=== PATIENT | male | born 1970 | race Caucasian/White ===

== ENCOUNTER 2022-05-31 09:06 | Inpatient (IN) ==
--- NOTE | 2022-05-31 10:01 | Emergency Department Note ---
History of Present Illness General Chief complaint: Back Injury/Pain Stated complaint: BACK PAIN Time Seen by Provider: 05/31/22 09:56 History of Present Illness Maximum Pain Intensity: 9 This is a 52-year-old male that presents to the emergency department via private vehicle with complaints of "back pain". The patient notes that while swimming about 3 weeks ago he injured his low back. He then played golf about a week ago that seem to exacerbate his symptoms. He now notes over the past few days he has had significant trouble walking secondary to pain. He notes he must lay in the prone position for some relief. He has tried muscle relaxers and Percocet with minimal relief. He notes the pain is in the right low back that radiates to the right hip and into the right groin area. He does note some numbness in the right thigh and right groin region. Patient denies any loss of control of his bowel or bladder. He does feel some weakness in the right leg. Current pain 9/10. He denies any history of spinal surgeries. No recent illness. No fevers or chills. No abdominal pain. Patient does note that he was to be on diabetic medication but is no longer taking them. Allergies Allergy/AdvReac Type Severity Reaction Status Date / Time morphine AdvReac Vomiting Verified 05/31/22 13:44 Past Med/Surg History Medical History Diabetes Surgical History No pertinent past surgical history Social History Smoking Status: Never smoker Feels Safe at Home: Yes Review of Systems A total of 10 systems reviewed and were otherwise negative Physical Exam Vital Signs Vital Signs - 24 hr 05/31/22 09:13 05/31/22 10:33 05/31/22 14:56 Temperature 36.5 C Temperature Source Temporal Artery Scan Pulse Rate 68 Pulse Rate [Left] 59 L 66 Pulse Rhythm [Left] Regular Regular Pulse Strength [Left] Normal Normal Respiratory Rate 20 19 18 Respiratory Effort / Characteristics Non-Labored Non-Labored Non-Labored Respiratory Depth Normal Normal Normal Respiratory Pattern Regular Regular Blood Pressure 215/104 H Blood Pressure [Left Arm] 158/85 H Blood Pressure Mean 141 Blood Pressure Mean [Left Arm] 109 Blood Pressure Position [Left Arm] Lying Pulse Oximetry 95 97 92 Oxygen Delivery Method Room Air Room Air Room Air Sepsis Recent Fever Within 48 Hours No Sepsis New/Unexplained Change in Mental Status N/A Sepsis Action Taken by Nursing No Action Required VITAL SIGNS - Vital signs and nursing notes were reviewed. Hypertensive, otherwise stable. GENERAL -52-year-old male appearing his stated age who is in no acute distress but appears to be in pain. Patient is laying prone on examination bed. Communicates well with provider and answers questions appropriately. SKIN - Without rashes. No meningeal or petechial rash. HEAD - NC/AT. EYES - PERRL with EOMI bilaterally. Sclera anicteric. EARS - No deformities of external structures noted on gross examination bilaterally. NOSE - Midline and without cyanosis. MOUTH/OROPHARYNX - Without perioral cyanosis. NECK - Neck with FROM. No nuchal rigidity. LUNGS - Chest wall symmetric without accessory muscle use, intercostals retractions, or central cyanosis. Normal vesicular breath sounds CTA B/L. No wheezes, rales, or rhonchi appreciated. CARDIAC - RRR with S1/S2. No murmur, rubs, or gallops appreciated. ABDOMEN - Abdominal contour normal without pulsations or visible masses. BS nor moactive all four quadrants. No tenderness, palpable masses, hepatosplenomegaly, or ascites noted. EXTREMITIES - No clubbing or peripheral cyanosis. No pretibial edema present. Left lower extremity strength normal. Right lower extremity with slight decreased range compared to the left. NEUROLOGIC - Cranial nerves II through XII grossly intact. Sensory intact to light touch throughout. Patellar reflexes +2/4. PSYCH - A&Ox3 and cooperates fully with examiner. Pt is very pleasant and interacts well with examiner. Course Administered Medications Discontinued Medications Dexamethasone Sodium Phosphate (DexamethasonePf 10 Mg/Ml Vial) 10 mg IV NOW ONE Stop: 05/31/22 13:37 Last Admin: 05/31/22 13:57 Dose: 10 mg Documented By: ALBAN Hydromorphone HCl (Hydromorphone Inj 1 Mg/Ml Syringe) 1 mg IV NOW STA Stop: 05/31/22 10:17 Last Admin: 05/31/22 10:27 Dose: 1 mg Documented By: LIGIA Hydromorphone HCl (Hydromorphone Inj 0.5 Mg/0.5 Ml Syr) 0.5 mg IV NOW STA Stop: 05/31/22 11:19 Last Admin: 05/31/22 11:30 Dose: 0.5 mg Documented By: LISA Lidocaine (Lidocaine 5% 1 Patch) 1 patch TD NOW STA Stop: 05/31/22 13:38 Last Admin: 05/31/22 13:55 Dose: 1 patch Documented By: ALBAN Ondansetron HCl (Ondansetron Inj 2 Mg/Ml 2 Ml Vial) 4 mg IV NOW STA Stop: 05/31/22 10:17 Last Admin: 05/31/22 10:27 Dose: 4 mg Documented By: LIGIA Medical Decision Making Laboratory Data Result diagrams: 05/31/22 10:30 05/31/22 10:30 Lab Results 05/31/22 05/31/22 Range/Units 10:30 10:30 WBC 6.83 (4.8-10.8) K/ul RBC 5.28 (4.63-6.08) M/uL Hgb 16.2 (14.0-18.0) g/dl Hct 45.4 (40.1-51.0) % MCV 86.0 (80.0-100.0) fL MCH 30.7 (25.0-34.0) pg MCHC 35.7 (32.0-36.0) g/dL RDW Std Deviation 38.7 (36.4-46.3) fL RDW Coeff of Malgorzata 12.3 (11.5-14.5) % Plt Count 197 (130-400) K/uL MPV 10.7 (9.4-12.4) fL Immature Gran % (Auto) 0.4 % Neut % (Auto) 68.8 % Lymph % (Auto) 21.8 % Baxter % (Auto) 7.8 % Eos % (Auto) 0.9 % Baso % (Auto) 0.3 % Neut # (Auto) 4.70 (1.4-6.5) K/uL Lymph # (Auto) 1.49 (1.2-3.4) K/uL Baxter # (Auto) 0.53 (0.24-0.82) K/uL Eos # (Auto) 0.06 (0-0.50) K/uL Baso # (Auto) 0.02 (0-0.2) K/uL Immature Gran # (Auto) 0.03 H (0.00-0.02) K/uL Sodium 135 L (136-145) mmol/L Potassium 3.9 (3.5-5.1) mmol/L Chloride 100 (98-107) mmol/L Carbon Dioxide 26 (21-32) mmol/L Anion Gap 9 (3-11) BUN 14 (6-23) mg/dl Creatinine 1.09 (0.6-1.4) mg/dl Est Cr Clr Drug Dosing 105.6 ml/min Est GFR ( Amer) 88.7 ml/min Est GFR (Non-Af Amer) 76.5 ml/min BUN/Creatinine Ratio 12.8 (10-20) Glucose 171 H (70-99(Fasting)) mg/dl Calcium 8.9 (8.5-10.1) mg/dl Total Bilirubin 0.7 (0.2-1.0) mg/dl AST 25 (13-39) U/L ALT 31 (7-52) U/L Alkaline Phosphatase 68 (34-104) U/L Total Protein 7.4 (6.0-8.3) gm/dl Albumin 4.0 (3.4-5.0) gm/dl Globulin 3.4 (2.5-4.0) gm/dl Albumin/Globulin Ratio 1.2 (0.9-2) Imaging Data Radiologist's Impression: Lumbar Spine MRI 05/31/22 10:16 MRI OF THE LUMBAR SPINE WITHOUT IV CONTRAST CLINICAL HISTORY: Low back pain radiating to the right groin. COMPARISON STUDY: No priors. TECHNIQUE: MRI of the lumbar spine is performed utilizing various T1 and T2 weighted sequences in the axial and sagittal planes. IV contrast was not administered for this examination. The examination is modestly degraded by motion artifact. FINDINGS: Lumbar spine: Vertebral body height and alignment are maintained throughout the lumbar spine. Tiny anterior and lateral marginal osteophytes are seen throughout. The transverse and spinous processes appear intact. There is no evidence of spondylolysis. Mild chronic degenerative endplate changes seen at L4-L5 and L5-S1. There is no significant endplate edema. No destructive bony lesion is seen. Intervertebral discs: There is mild degenerative disc desiccation throughout the lumbar spine. The disc spaces are maintained. Spinal cord: The visualized spinal cord is normal in morphology and signal intensity. The conus medullaris terminates at the L1-L2 interspace. The nerve roots of the cauda equina are normal in morphology. L1-L2: Unremarkable. L2-L3: There is a far right lateral disc extrusion, best seen on axial T1 weighted image #8. This may impinge on the exiting right L2 nerve root. The extruded fragment measures up to 1.0 cm. The central canal and neural foramina are clear. L3-L4: There is minimal posterior disc bulge. The central canal and neural foramina are patent. L4-L5: There is broad-based posterior disc bulge. There is mild acquired compromise of the central canal at this level with a minimum AP diameter of 6.5. Lateral disc bulge contributes to bilateral subarticular stenosis. This may abut the exiting right L4 nerve root. In conjunction with facet arthropathy there is mild bilateral neural foraminal stenosis. L5-S1: There is minimal posterior disc bulge with annular fissure. No significant acquired compromise of the central canal is identified. There is mild bilateral subarticular stenosis. In conjunction with facet arthropathy there is moderate left and mild right neural foraminal narrowing. Sacrum: The visualized sacrum is normal in morphology and signal intensity. Soft tissues: The paraspinous soft tissues are within normal limits. The retroperitoneal structures are grossly unremarkable but incompletely evaluated. IMPRESSION: 1. There is a right lateral disc extrusion at L2-L3 which likely impinges on the exiting right L2 nerve root. 2. Spondylotic change at additional levels as above. See discussion for detailed level by level analysis. 3. No destructive bony process is seen. Dictated: 05/31/2022 12:20 PM Transcribed: 05/31/2022 12:51 PM Patricia [id number] VANGIE_Terry Electronically signed by: Marco Antonio Burns M.D. 05/31/2022 1:23 PM [facility] Narrative Patient was seen and evaluated as above in room B10. Review was performed of nursing notes and vital signs. After obtaining a thorough history and physical examination the above work up was performed. Patient presents to us today for evaluation of low back pain. This radiates to the right groin region. Patient clinically appears well and nontoxic but appears to be in pain. He is in the prone position on the examination bed at time of exam. He is hypertensive. No abdominal pain. Options of care were discussed with the patient. IV access was established. Labs were drawn. Patient has an allergy to morphine but notes he has tolerated Dilaudid well without issues in the past. This was ordered as well as IV Zofran. I do believe that an MRI of the L-spine is warranted. He notes allergy to morphine but has tolerated Dilaudid previously. There is no leukocytosis or concerning anemia. Mild hyponatremia 135. Hyperglycemia 171. MRI was felt reasonable at this point to further assess the spine. There is a right lateral disc extrusion at L2-L3 which likely impinges on the exiting L2 nerve root. This does clinically correlate with his presentation. Patient was medicated with IV analgesics. Even with this the patient still had discomfort and pain with standing/movements. At this time given the patient's steady decline in the outpatient setting in regard to his back pain I do believe that further evaluation and management in the inpatient setting is warranted. I did discuss this finding with the recycling specialist team. Please refer to their documentation regarding assessment. Case also discussed with the hospitalist service for medical admission. Please refer to further documentation regarding his stay. Patient amenable to plan of care. In the evaluation and treatment of this patient the following differential diagnosis entertained: Fracture, dislocation, subluxation, cauda equina syndrome, AAA, diverticulitis, appendicitis, torsion, osteomyelitis, piriformis syndrome, strain, sprain, among others. GCS: 15 Impression & Plan Lumbar radiculopathy, Abnormal MRI, lumbar spine, Intractable low back pain Discharge Plan Visit Data Chief Complaint: Back Injury/Pain Stated Complaint: BACK PAIN ED Provider: Saeed Gilbert ED Midlevel Provider: Manohar Robbins Discharge Problem: Lumbar radiculopathy, Abnormal MRI, lumbar spine, Intractable low back pain Patient Disposition: Admitted As Inpatient Condition: Good Forms Stand Alone Forms: My [facility] Referrals Referrals: PCP,NO [Physician] -
[2022-05-31] MEDS ORDERED: ONDANSETRON INJ 2 MG/ML 2 ML VIAL IV STA (10:16)
[2022-05-31] MEDS ORDERED: HYDROmorphone INJ 1 MG/ML SYRINGE IV STA (10:16)
[2022-05-31 10:45] LABS: Basophils # (auto) 0.02 K/uL (0-0.2); Basophils % (auto) 0.3 %; Eosinophils # (auto) 0.06 K/uL (0-0.50); Eosinophils % (auto) 0.9 %; Hematocrit (blood only) 45.4 % (40.1-51.0); Hemoglobin 16.2 g/dl (14.0-18.0); Immature Granulocytes # (auto) 0.03 K/uL (0.00-0.02); Immature Granulocytes % (auto) 0.4 %; Lymphocytes # (auto) 1.49 K/uL (1.2-3.4); Lymphocytes % (auto) 21.8 %; Mean Corpuscular Hemoglobin 30.7 pg (25.0-34.0); Mean Corpuscular Hgb Conc 35.7 g/dL (32.0-36.0); Mean Platelet Volume 10.7 fL (9.4-12.4); Monocytes # (auto) 0.53 K/uL (0.24-0.82); Monocytes % (auto) 7.8 %; Neutrophils % (auto) 68.8 %; Platelet Count 197 K/uL (130-400); RDW Coefficient of Variation 12.3 % (11.5-14.5); RDW Standard Deviation 38.7 fL (36.4-46.3); Red Blood Count 5.28 M/uL (4.63-6.08); White Blood Count 6.83 K/ul (4.8-10.8)
[2022-05-31 11:05] LABS: Albumin Globulin Ratio 1.2 (0.9-2); BUN Creatinine Ratio 12.8 (10-20); Bilirubin,Total 0.7 mg/dl (0.2-1.0); Calcium 8.9 mg/dl (8.5-10.1); Creatinine Clr Calc Pharmacy 105.6 ml/min; Est GFR (African American) 88.7 ml/min; Est GFR (Non-African American) 76.5 ml/min; Globulin 3.4 gm/dl (2.5-4.0); Potassium 3.9 mmol/L (3.5-5.1); Total Protein 7.4 gm/dl (6.0-8.3)
[2022-05-31] MEDS ORDERED: HYDROmorphone INJ 0.5 MG/0.5 ML SYR IV STA (11:18)
--- NOTE | 2022-05-31 13:24 | Magnetic Resonance Report ---
MRI OF THE LUMBAR SPINE WITHOUT IV CONTRAST CLINICAL HISTORY: Low back pain radiating to the right groin. COMPARISON STUDY: No priors. TECHNIQUE: MRI of the lumbar spine is performed utilizing various T1 and T2 weighted sequences in the axial and sagittal planes. IV contrast was not administered for this examination. The examination is modestly degraded by motion artifact. FINDINGS: Lumbar spine: Vertebral body height and alignment are maintained throughout the lumbar spine. Tiny an terior and lateral marginal osteophytes are seen throughout. The transverse and spinous processes darwin ear intact. There is no evidence of spondylolysis. Mild chronic degenerative endplate changes seen at L4-L5 and L5-S1. There is no significant endplate edema. No destructive bony lesion is seen. Intervertebral discs: There is mild degenerative disc desiccation throughout the lumbar spine. The di sc spaces are maintained. Spinal cord: The visualized spinal cord is normal in morphology and signal intensity. The conus medul lesa terminates at the L1-L2 interspace. The nerve roots of the cauda equina are normal in morpholog y. L1-L2: Unremarkable. L2-L3: There is a far right lateral disc extrusion, best seen on axial T1 weighted image #8. This may impinge on the exiting right L2 nerve root. The extruded fragment measures up to 1.0 cm. The central canal and neural foramina are clear. L3-L4: There is minimal posterior disc bulge. The central canal and neural foramina are patent. L4-L5: There is broad-based posterior disc bulge. There is mild acquired compromise of the central ca nal at this level with a minimum AP diameter of 6.5. Lateral disc bulge contributes to bilateral suba rticular stenosis. This may abut the exiting right L4 nerve root. In conjunction with facet arthropat hy there is mild bilateral neural foraminal stenosis. L5-S1: There is minimal posterior disc bulge with annular fissure. No significant acquired compromise of the central canal is identified. There is mild bilateral subarticular stenosis. In conjunction wi th facet arthropathy there is moderate left and mild right neural foraminal narrowing. Sacrum: The visualized sacrum is normal in morphology and signal intensity. Soft tissues: The paraspinous soft tissues are within normal limits. The retroperitoneal structures a re grossly unremarkable but incompletely evaluated. IMPRESSION: 1. There is a right lateral disc extrusion at L2-L3 which likely impinges on the exiting right L2 ner ve root. 2. Spondylotic change at additional levels as above. See discussion for detailed level by level mary sis. 3. No destructive bony process is seen. Dictated: 05/31/2022 12:20 PM Transcribed: 05/31/2022 12:51 PM Patricia [id number] VANGIE_Terry Electronically signed by: Marco Antonio Burns M.D. 05/31/2022 1:23 PM
[2022-05-31] MEDS ORDERED: dexAMETHasone**PF** 10 MG/ML VIAL IV ONE (13:36)
[2022-05-31] MEDS ORDERED: LIDOCAINE 5% 1 PATCH TD STA (13:37)
--- NOTE | 2022-05-31 14:44 | Consultation ---
Date of Consultation May 31, 2022 Assessment & Plan (1) HNP (herniated nucleus pulposus), lumbar: Dr. Goodwin has reviewed his MRI. Currently patient is being admitted to the medical service. Options have been reviewed with patient including pain management injections versus ultimate surgical fixation. At this point in time patient would like to discuss his options with his . I will make him n.p.o. after midnight just in case surgery is decided upon. I will also consult pain management team to review their options with him. MRI and clinical findings have been reviewed with the patient and his . All questions have been answered in detail. History of Present Illness Reason for Consultation: HNP L2-3 right History of Present Illness Is a 52-year-old gentleman who 4 weeks ago was going down an inflatable water slide into a pool. At the bottom of the pool he jammed his right leg into the concrete wall. He had some back pain at that point in time. It progressed to pain radiating around his hip and right groin. Since then he has been quite uncomfortable with pain that is in the lower back rating along the right groin, right anterior thigh and right medial thigh. Left leg is asymptomatic. There is new numbness over the past weekend now along this pain pattern as well. He ambulates independently. Denies bowel bladder changes. He has had no treatment or work-up over the past 4 weeks. He presented to the emergency room today because the pain is so severe. Seated position is his most uncomfortable position. Lying prone is most palliative. A t home he has been taking some of his 's Flexeril and Percocet for pain control. Allergies Allergy/AdvReac Type Severity Reaction Status Date / Time morphine AdvReac Vomiting Verified 05/31/22 13:44 Patient History Medical History Diabetes Surgical History No pertinent past surgical history Social History Smoking Status: Never smoker Feels Safe at Home: Yes Review of Systems Review of Systems: All systems reviewed & are unremarkable except as noted in HPI & below Physical Exam Physical Exam: He is seen in the emergency room b10 He is prone during most of our exam. Alert and oriented x3 Obviously uncomfortable He is able to change positions on his own so I may examine him more thoroughly. Nontender to position of the midline lumbar spine Negative tension signs bilaterally Negative straight leg raising bilaterally Motor testing is 5 5 bilateral EHL, dorsiflexion, plantarflexion, quadriceps, hamstrings, hip flexors, hip abductor's and hip adductor's Constitutional: well nourished Eyes: normal visual mathis by confrontation ENMT: external ear and nose normal, oropharynx normal Neck: normal visual inspection Respiratory: normal respiratory effort Cardiovascular: Extremities: normal capillary refill Gastrointestinal (Abdomen): Inspection/Auscultation: abdomen normal to inspection Musculoskeletal: Extremities: extremities normal to inspection and strength 5/5 throughout Skin: no rashes, warm and dry Neurologic: normal touch/pain/proprioception and moves all extremities Psychiatric: A+Ox3, euthymic affect Eye Contact: good eye contact Speech: normal rate/rhythm/volume of speech Results & Data ([facility]) Vital Signs (Past 12 Hours) Vital Signs Temp Pulse Pulse Resp BP BP Pulse Ox 05/31/22 10:33 59 L 19 158/85 H 97 05/31/22 09:13 36.5 C 68 20 215/104 H 95 O2 Del Method 05/31/22 10:33 Room Air 05/31/22 09:13 Room Air Diagnostic Findings [place], [place] [phone] Magnetic Resonance Report Patient:ANNETTA SUMMERS Admit Date:05/31/22 MR#:[id number] Address1:[address] [place] [address] Acct ID:[id number] Address2: Date:1970 [facility] Zip:[place] [address] Age:52 Location:ED Sex:M Room/Bed: Att Phy: Diagnosis:BACK PAIN Genie Phy:Jerry Art DO Service Date:05/31/22 Fam Phy: Interpreting Phy:Marco Antonio Burns MDAdmit Phy: Ordering Phy:Manohar Robbins PA-C cc: ~ MRI OF THE LUMBAR SPINE WITHOUT IV CONTRAST CLINICAL HISTORY: Low back pain radiating to the right groin. COMPARISON STUDY: No priors. TECHNIQUE: MRI of the lumbar spine is performed utilizing various T1 and T2 weighted sequences in the axial and sagittal planes. IV contrast was not administered for this examination. The examination is modestly degraded by motion artifact. FINDINGS: Lumbar spine: Vertebral body height and alignment are maintained throughout the lumbar spine. Tiny anterior and lateral marginal osteophytes are seen throughout. The transverse and spinous processes appear intact. There is no evidence of spondylolysis. Mild chronic degenerative endplate changes seen at L4-L5 and L5-S1. There is no significant endplate edema. No destructive bony lesion is seen. Intervertebral discs: There is mild degenerative disc desiccation throughout the lumbar spine. The disc spaces are maintained. Spinal cord: The visualized spinal cord is normal in morphology and signal intensity. The conus medullaris terminates at the L1-L2 interspace. The nerve roots of the cauda equina are normal in morphology. L1-L2: Unremarkable. L2-L3: There is a far right lateral disc extrusion, best seen on axial T1 weighted image #8. This may impinge on the exiting right L2 nerve root. The extruded fragment measures up to 1.0 cm. The central canal and neural foramina are clear. L3-L4: There is minimal posterior disc bulge. The central canal and neural foramina are patent. L4-L5: There is broad-based posterior disc bulge. There is mild acquired compromise of the central canal at this level with a minimum AP diameter of 6.5. Lateral disc bulge contributes to bilateral subarticular stenosis. This may abut the exiting right L4 nerve root. In conjunction with facet arthropathy there is mild bilateral neural foraminal stenosis. L5-S1: There is minimal posterior disc bulge with annular fissure. No significant acquired compromise of the central canal is identified. There is mild bilateral subarticular stenosis. In conjunction with facet arthropathy there is moderate left and mild right neural foraminal narrowing. Sacrum: The visualized sacrum is normal in morphology and signal intensity. Soft tissues: The paraspinous soft tissues are within normal limits. The retroperitoneal structures are grossly unremarkable but incompletely evaluated. IMPRESSION: 1. There is a right lateral disc extrusion at L2-L3 which likely impinges on the exiting right L2 nerve root. 2. Spondylotic change at additional levels as above. See discussion for detailed level by level analysis. 3. No destructive bony process is seen. Dictated: 05/31/2022 12:20 PM Transcribed: 05/31/2022 12:51 PM Patricia [id number] VANGIE_Terry Electronically signed by: Marco Antonio Burns M.D. 05/31/2022 1:23 PM Dictated:05/31/22 1220 Transcribed: 05/31/22 1251
--- NOTE | 2022-05-31 15:33 | History & Physical Report ---
Date of Service May 31, 2022 Assessment & Plan (1) Lumbar radiculopathy: Plan: -Admit to med/surge -No red flag symptoms at the current time -Ortho on board and will re-evaluate tomorrow to determine best treatment options -Will try a dose of toradol now to see if this improves his pain as his kidney function is good -Continue with lidocaine patch, will start baclofen at 5 mg PO TID, will also try gabapentin 100 mg PO BID for radicular pain, scheduled q6h Tylenol and K- patch as well -Oxy 5mg q4h prn for severe pain -OOB to chair with assist -PT/OT consults ordered -Q6 neuro checks -NPO except meds at midnight in case of procedure tomorrow (2) HNP (herniated nucleus pulposus), lumbar: Plan: -See lumbar radiculopathy (3) DM II (diabetes mellitus, type II), controlled: Plan: -No currently on medication -Will start with accu checks ACHS -Correction factor of 20 and carb ration of 6 (4) HTN (hypertension): Plan: -Not on any DENTAL TECHNOLOGY ADVISOR antihypertensives -Hemodynamically stable at the time of admission -Monitor for now (5) Hypercholesteremia: Plan: -DENTAL TECHNOLOGY ADVISOR atorvastatin (6) Anxiety: Plan: -DENTAL TECHNOLOGY ADVISOR citalopram Plan The patient was discussed with Dr. Gan at the time of admission History of Present Illness Chief Complaint: Low back pain Primary Care Provider: Jerry Art DO Angel Luis is a 52 year old male with a PMH significant for HTN, DM II, anxiety, and Dyslipidemia who presented to the [facility] ED on 05/31/22 with a chief complaint of low back pain and ambulatory dysfunction. At the time of the exam the patient was lying prone in his bed in no acute distress with his sitting bedside. They state that his back pain started approximately 1 month ago. He went head first down their pool slide when his right leg hit the side of their pool, he states that this cause him to "tweak" his back and have significant lower back pain. He rested for a few days and the pain began to improve. Last week he was attending a golf outing for his work when he felt a "pop" while swinging and then experiencing significant low back pain which radiated around his right hip, and to the front of his upper right thigh and groin. He experienced significant weakness in his right leg after this occurred and he again rested for multiple days in bed. Yesterday, he was feeling improved and went in the pool with his granddaughter, he did not do any significant strenuous activity. He felt well after but then woke up this morning with significant back pain. He tried to go to work but was unable to tolerate the pain. He tried Tylenol and baclofen but they only took the edge off a little. He is experiencing numbness and tingling in the same distribution as his lower back and right leg but denies saddle an esthesia and loss of bowel/bladder function. He currently takes atorvastatin for high cholesterol and citalopram for anxiety. In the ED the patient underwent MRI of the lumbar spine which revealed right lateral disc extrusion at L2-L3 which likely impinges on the exiting right L2 nerve root. The patient was given a lidocaine patch, 10 mg IV dexamethasone, and 1.5 mg of IV dilaudid. He states that his pain is currently a 2-3/10 after receiving the Dilaudid. He was evaluated by orthpedic surgery who recommended medicine admission, they will re-evaluate tomorrow and discuss possible t reatment options with the patient and his ; they also consulted pain management. Allergies Allergy/AdvReac Type Severity Reaction Status Date / Time morphine AdvReac Vomiting Verified 05/31/22 15:34 Home Medications Medication Instructions Recorded Confirmed Type atorvastatin 10 mg tablet 10 mg PO DAILY 05/31/22 05/31/22 History citalopram 20 mg tablet 20 mg PO DAILY 05/31/22 05/31/22 History ibuprofen 200 mg tablet 800 mg PO Q8 PRN Pain 05/31/22 05/31/22 History Past Med/Surg History Medical History Diabetes Surgical History No pertinent past surgical history Social History Smoking Status: Never smoker Feels Safe at Home: Yes Review of Systems Review of Systems: Denies current fever, chills, headache, changes in vision, hearing, taste, and smell, chest pain, SOB, cough, abdominal pain, nausea, vomiting, diarrhea, hematemesis, melena, dysuria, hematuria, and recent falls. All systems have been reviewed and are otherwise negative. Physical Exam Physical Exam: Physical Exam: General: In no acute distress, stated age, obese, HEENT: Normocephalic, atraumatic, no scleral icterus, pupils around round, symmetrical, and reactive to light, moist mucus membranes, trachea midline, no thyromegaly Chest/Pulm: No respiratory distress, symmetrical chest expansion, clear breath sounds throughout Cardiac: RRR, no murmurs noted Abdomen: Negative for ascites and bruising, normoactive bowel sounds, soft, non-tender to palpation throughout Musculoskeletal: Patient is non-tender to palpation over the cervical and thoracic spine, significant tenderness to palpation over the lumbar spine, no step-off or crepitus noted on palpation of the lumbar spine, patient able to get out of bed himself and ambulate to the restroom without assistance, slightly red uced strength in the right leg compared to left due to pain Extremities: Radial, dorsalis pedis, and posterior tibial pulses are intact and symmetrical, no edema noted in the BL LE's Skin: Warm, dry, no rashes , lesions, or scars noted Neuro: Alert and oriented to person, place, month, year, and president, no focal defects, CN II-XII tested and intact, finger to nose test negative, no tremors noted Psych: No acute distress, calm and cooperative during the exam Results & Data Results & Data ([facility]) Vital Signs (Past 12 Hours) Vital Signs Temp Pulse Pulse Resp BP BP Pulse Ox 05/31/22 14:56 66 18 92 05/31/22 10:33 59 L 19 158/85 H 97 05/31/22 09:13 36.5 C 68 20 215/104 H 95 O2 Del Method 05/31/22 14:56 Room Air 05/31/22 10:33 Room Air 05/31/22 09:13 Room Air Laboratory Results Abnormal lab results 05/31/22 05/31/22 Range/Units 10:30 10:30 Immature Gran # (Auto) 0.03 H (0.00-0.02) K/uL Sodium 135 L (136-145) mmol/L Glucose 171 H (70-99(Fasting)) mg/dl Diagnostic Findings Lumbar Spine MRI 05/31/22 10:16 MRI OF THE LUMBAR SPINE WITHOUT IV CONTRAST CLINICAL HISTORY: Low back pain radiating to the right groin. COMPARISON STUDY: No priors. TECHNIQUE: MRI of the lumbar spine is performed utilizing various T1 and T2 weighted sequences in the axial and sagittal planes. IV contrast was not administered for this examination. The examination is modestly degraded by motion artifact. FINDINGS: Lumbar spine: Vertebral body height and alignment are maintained throughout the lumbar spine. Tiny anterior and lateral marginal osteophytes are seen throughout. The transverse and spinous processes appear intact. There is no evidence of spondylolysis. Mild chronic degenerative endplate changes seen at L4-L5 and L5-S1. There is no significant endplate edema. No destructive bony lesion is seen. Intervertebral discs: There is mild degenerative disc desiccation throughout the lumbar spine. The disc spaces are maintained. Spinal cord: The visualized spinal cord is normal in morphology and signal intensity. The conus medullaris terminates at the L1-L2 interspace. The nerve roots of the cauda equina are normal in morphology. L1-L2: Unremarkable. L2-L3: There is a far right lateral disc extrusion, best seen on axial T1 weighted image #8. This may impinge on the exiting right L2 nerve root. The extruded fragment measures up to 1.0 cm. The central canal and neural foramina are clear. L3-L4: There is minimal posterior disc bulge. The central canal and neural foramina are patent. L4-L5: There is broad-based posterior disc bulge. There is mild acquired compromise of the central canal at this level with a minimum AP diameter of 6.5. Lateral disc bulge contributes to bilateral subarticular stenosis. This may abut the exiting right L4 nerve root. In conjunction with facet arthropathy there is mild bilateral neural foraminal stenosis. L5-S1: There is minimal posterior disc bulge with annular fissure. No significant acquired compromise of the central canal is identified. There is mild bilateral subarticular stenosis. In conjunction with facet arthropathy there is moderate left and mild right neural foraminal narrowing. Sacrum: The visualized sacrum is normal in morphology and signal intensity. Soft tissues: The paraspinous soft tissues are within normal limits. The retroperitoneal structures are grossly unremarkable but incompletely evaluated. IMPRESSION: 1. There is a right lateral disc extrusion at L2-L3 which likely impinges on the exiting right L2 nerve root. 2. Spondylotic change at additional levels as above. See discussion for detailed level by level analysis. 3. No destructive bony process is seen. Dictated: 05/31/2022 12:20 PM Transcribed: 05/31/2022 12:51 PM Patricia [id number] VANGIE_Terry Electronically signed by: Marco Antonio Burns M.D. 05/31/2022 1:23 PM ECG Additional Comments: No EKG available at the time of admission, will order one now Code Status & VTE Plan Code Status Full code VTE Prophylaxis Plan VTE Prophylaxis will be ordered: Yes Supervising Physician Co-Signing Physician Notes I supervised Armando Pérez PA-C on this admission. I interviewed and examined the patient independently of him. The plan is as written in his note except for any following changes/exceptions: None 52yo M w/ hx of DM who presents with back pain. Initially started about 1 month ago, but has exacerbated it several times over the last week. Now with some mild subjective weakness. MRI shows ruptured disc. Seen by ortho-spine PA in the ER with hope for conservative management. PG Care Time/CCT Total # of Minutes Spent Total Time Spent with Patient: Total time spent is greater than 50% in coordination of care (as documented) at patient's floor/unit and/or counseling patient: [place] [address] Initial Inpt Care Lvl 3 Patient Type New Medical Decision Making Low Complexity Diagnoses Lumbar radiculopathy M54.16 HNP (herniated nucleus pulposus), lumbar M51.26 DM II (diabetes mellitus, type II), controlled E11.9 HTN (hypertension) I10 Hypercholesteremia E78.00 Anxiety F41.9
[2022-05-31] MEDS ORDERED: CARBOHYDRATES FOR HYPOGLYCEMIA PO PRN (17:49)
[2022-05-31] MEDS ORDERED: DEXTROSE 50% 50 ML SYRINGE IV PRN (17:49)
[2022-05-31] MEDS ORDERED: GLUCOSE 10 TAB/TUBE PO PRN (17:49)
[2022-05-31] MEDS ORDERED: KETOROLAC TROMETHAMINE 15 MG/ML VIAL IV ONE (17:49)
[2022-05-31] MEDS ORDERED: GLUCOSE 40% GEL 15 GM TUBE PO PRN (17:49)
[2022-05-31] MEDS ORDERED: BACLOFEN 10 MG TAB PO PRN (17:49)
[2022-05-31] MEDS ORDERED: GLUCAGON FOR INJ 1 MG VIAL SQ PRN (17:49)
[2022-05-31] MEDS: oxyCODONE HCL IR 5 MG TAB (IMMEDIATE RELEASE) PO PRN ×2 (18:22→22:34)
[2022-05-31] MEDS: GABAPENTIN 100 MG CAP PO SCH ×2 (19:08→21:28)
[2022-05-31] MEDS: ENOXAPARIN INJ 40 MG/0.4 ML SYR SQ SCH (19:08)
[2022-05-31] MEDS: INSULIN ASPART PER UNIT SC SCH ×2 (19:12→21:29)
[2022-05-31] MEDS: ACETAMINOPHEN 325 MG TAB PO PRN (21:27)
[2022-06-01] MEDS: ACETAMINOPHEN 325 MG TAB PO PRN (06:17)
[2022-06-01] MEDS: oxyCODONE HCL IR 5 MG TAB (IMMEDIATE RELEASE) PO PRN ×3 (06:18→17:14)
[2022-06-01] MEDS: INSULIN ASPART PER UNIT SC SCH ×4 (06:22→21:22)
[2022-06-01 08:02] LABS: Hematocrit (blood only) 45.7 % (40.1-51.0); Hemoglobin 16.2 g/dl (14.0-18.0); Mean Corpuscular Hemoglobin 30.5 pg (25.0-34.0); Mean Corpuscular Hgb Conc 35.4 g/dL (32.0-36.0); Mean Corpuscular Volume 86.1 fL (80.0-100.0); Mean Platelet Volume 10.5 fL (9.4-12.4); Platelet Count 244 K/uL (130-400); RDW Coefficient of Variation 12.7 % (11.5-14.5); RDW Standard Deviation 39.8 fL (36.4-46.3); Red Blood Count 5.31 M/uL (4.63-6.08); White Blood Count 12.66 K/ul (4.8-10.8)
--- NOTE | 2022-06-01 08:25 | Pain Management Consultation ---
Date of Consultation June 01, 2022 Assessment & Plan (1) HNP (herniated nucleus pulposus), lumbar: Plan I have discussed the possible option of lumbar epidural steroid injection. Procedure was explained in details were discussed. Ultimately the patient would like to proceed with lumbar spine surgery. We will continue his current medication regimen of oxycodone, baclofen, gabapentin, lidocaine patch. History of Present Illness Reason for Consultation: Intractable back pain Attending Physician: Marleny Ballard MD History of Present Illness This is a 52-year-old male that has been admitted to the [facility] for lumbar radiculopathy. Patient states that he went down a pool slide and felt numbness and tingling into the right groin. He then went golfing last week and felt a sudden pop in his low back. The pain is located in the lumbar region and radiates into the right groin. At home he was taking Tylenol and baclofen without relief. He did meet with spine surgery yesterday and to consider either conservative epidural steroid injections with pain management or proceed with surgical repair. Patient denies any bowel/bladder incontinence, saddle anesthesia, foot drop, falls. Case discussed with Dr. Radha Mccann Allergies Allergy/AdvReac Type Severity Reaction Status Date / Time morphine AdvReac Vomiting Verified 05/31/22 15:34 Home Medications Medication Instructions Recorded Confirmed Type atorvastatin 10 mg tablet 10 mg PO DAILY 05/31/22 05/31/22 History citalopram 20 mg tablet 20 mg PO DAILY 05/31/22 05/31/22 History ibuprofen 200 mg tablet 800 mg PO Q8 PRN Pain 05/31/22 05/31/22 History Patient History Medical History Diabetes Surgical History No pertinent past surgical history Social History Smoking Status: Never smoker Second Hand Exposure: No; Hx Alcohol Use: Yes Alcohol type: beer and hard liquor Hx Substance Use: No Preferred Language: [place] Communication Ability: Effective Geochemist Required: No Beliefs That Will Affect Care: None Current Living Situation: Spouse Feels Safe at Home: Yes Assistive Devices: None Physical Exam Physical Exam: GENERAL: This is an obese 52 year old male that does not appear in any acute distress. HEAD/FACE: Normocephalic and atraumatic. EYES: No drainage or conjunctival injection. ENT: Nose without bleeding or discharge. Oral mucosa moist. RESPIRATORY: Patient with unlabored breathing. No signs of respiratory distress. CHEST/AXILLA: Chest movement symmetrical. No deformities noted. BACK: Mild tenderness at L2. No SI joint tenderness. No myofascial spasm or trigger points noted. SKIN: [place], warm and dry. No rash noted. MS/EXTREMITY: No swelling, no deformities. Moving extremities appropriately. NEURO: Alert and appears oriented. Speech is fluent. Cranial Nerves are grossly intact. PSYCH: Alert, pleasant, affect is calm Results ([facility]) Diagnostic Review MRI Findings: MRI OF THE LUMBAR SPINE WITHOUT IV CONTRAST CLINICAL HISTORY: Low back pain radiating to the right groin. COMPARISON STUDY: No priors. TECHNIQUE: MRI of the lumbar spine is performed utilizing various T1 and T2 weighted sequences in the axial and sagittal planes. IV contrast was not administered for this examination. The examination is modestly degraded by motion artifact. FINDINGS: Lumbar spine: Vertebral body height and alignment are maintained throughout the lumbar spine. Tiny anterior and lateral marginal osteophytes are seen throughout. The transverse and spinous processes appear intact. There is no evidence of spondylolysis. Mild chronic degenerative endplate changes seen at L4-L5 and L5-S1. There is no significant endplate edema. No destructive bony lesion is seen. Intervertebral discs: There is mild degenerative disc desiccation throughout the lumbar spine. The disc spaces are maintained. Spinal cord: The visualized spinal cord is normal in morphology and signal intensity. The conus medullaris terminates at the L1-L2 interspace. The nerve roots of the cauda equina are normal in morphology. L1-L2: Unremarkable. L2-L3: There is a far right lateral disc extrusion, best seen on axial T1 weighted image #8. This may impinge on the exiting right L2 nerve root. The extruded fragment measures up to 1.0 cm. The central canal and neural foramina are clear. L3-L4: There is minimal posterior disc bulge. The central canal and neural foramina are patent. L4-L5: There is broad-based posterior disc bulge. There is mild acquired compromise of the central canal at this level with a minimum AP diameter of 6.5. Lateral disc bulge contributes to bilateral subarticular stenosis. This may abut the exiting right L4 nerve root. In conjunction with facet arthropathy there is mild bilateral neural foraminal stenosis. L5-S1: There is minimal posterior disc bulge with annular fissure. No significant acquired compromise of the central canal is identified. There is mil d bilateral subarticular stenosis. In conjunction with facet arthropathy there is moderate left and mild right neural foraminal narrowing. Sacrum: The visualized sacrum is normal in morphology and signal intensity. Soft tissues: The paraspinous soft tissues are within normal limits. The retroperitoneal structures are grossly unremarkable but incompletely evaluated. IMPRESSION: 1. There is a right lateral disc extrusion at L2-L3 which likely impinges on the exiting right L2 nerve root. 2. Spondylotic change at additional levels as above. See discussion for detailed level by level analysis. 3. No destructive bony process is seen. Dictated: 05/31/2022 12:20 PM Transcribed: 05/31/2022 12:51 PM Patricia [id number] VANGIE_Terry Electronically signed by: Marco Antonio Burns M.D. 05/31/2022 1:23 PM
[2022-06-01 08:26] LABS: Albumin Globulin Ratio 1.2 (0.9-2); Albumin Level 4.2 gm/dl (3.4-5.0); BUN Creatinine Ratio 16.4 (10-20); Bilirubin,Total 0.8 mg/dl (0.2-1.0); Calcium 9.2 mg/dl (8.5-10.1); Creatinine Clr Calc Pharmacy 103.6 ml/min; Est GFR (African American) 87.7 ml/min; Est GFR (Non-African American) 75.7 ml/min; Globulin 3.4 gm/dl (2.5-4.0); Total Protein 7.6 gm/dl (6.0-8.3)
[2022-06-01] MEDS: GABAPENTIN 100 MG CAP PO SCH ×2 (08:41→20:32)
[2022-06-01] MEDS: ATORVASTATIN 10 MG TAB PO SCH (08:41)
[2022-06-01] MEDS: CITALOPRAM 20 MG TAB PO SCH (08:41)
[2022-06-01] MEDS: ENOXAPARIN INJ 40 MG/0.4 ML SYR SQ SCH ×2 (08:42→20:32)
--- NOTE | 2022-06-01 12:43 | Orthopedic Progress Note ---
Date of Service June 01, 2022 Assessment & Plan (1) Lumbar radiculopathy: Plan: Assessment foraminal disc herniation with severe radiculopathy. Plan at this time patient is markedly uncomfortable unable to ambulate any distance or sit up without severe pain. The IV medications providing some relief. He is only comfortable lying supine. He would like to pursue surgical invention. In light of the position of the disc herniation it would require facetectomy of L2-L3 on the right to safely and adequately address the nerve compression and disc herniation. This would create iatrogenic instability and subsequently will require fusion. Subsequently would require a lumbar decompression fusion L2-L3. Risk benefits pros cons returns well in detail. It may come p.o. after midnight and plan for surgery tomorrow. Admission and Anticipated Discharge Date Admission Date: May 31, 2022 Subjective Patient continues to have severe right buttock and groin pain. He is unable to sit up for any length of time without severe pain. He can only find position when lying supine and with his he has pain medication. Physical Exam Physical Exam: Patient does exhibit deficits with hip flexion on the right. Plantar flexion dorsiflexion intact. Sensory markedly diminished the right anterior thigh compared to the left. Results & Data ([facility]) Vital Signs (Past 12 Hours) Vital Signs Temp Pulse Resp BP Pulse Ox O2 Del Method 06/01/22 07:00 36.5 C 85 16 145/84 H 98 Room Air
[2022-06-01] MEDS: POLYETHYLENE (MIRALAX) 17 GM PACK PO SCH (14:52)
[2022-06-01] MEDS: DOCUSATE SODIUM/SENNA 50/8.6MG TAB PO SCH (14:52)
[2022-06-01] MEDS ORDERED: Nursing to Pharmacy Communication SCH (16:15)
--- NOTE | 2022-06-01 21:02 | Hospitalist Progress Note ---
Date of Service June 01, 2022 Assessment & Plan (1) Lumbar radiculopathy: Plan: Presents with acutely worsening right L2 lumbar radiculopathy after an injury initially sustained a few weeks ago With intractable pain as well as sensory deficit and some weakness in the right proximal lower extremity Is only slightly improved after receiving IV Decadron in the ER, p.o. oxycodone, starting gabapentin and baclofen as well as lidocaine patch And now for lumbar discectomy and fusion on 06/02-n.p.o. after midnight Continue pain medications as above (2) DM II (diabetes mellitus, type II), controlled: Plan: Not on medication at home Did receive Decadron in the ER making some of his blood sugars slightly elevated -Continue with accu checks ACHS -NovoLog with Correction factor of 20 and carb ration of 6 -Check hemoglobin A1c in the morning (3) Hypercholesteremia: Plan: -Continue atorvastatin (4) Anxiety: Plan: No acute issues -Continue citalopram Plan DVT prophylaxis-Lovenox will be held for surgery, continue SCDs Disposition-continued stay on medical/surgical unit Admission and Anticipated Discharge Date Admission Date: May 31, 2022 Subjective Patient reports ongoing pain that is severe in the right buttocks through the right anterior thigh with decreased sensation in the thigh and into the groin region. His pain is controlled when he is sitting still but when he tried to get up to walk today he had recurrence of severe pain although not quite as bad as last evening. Plan is for surgery tomorrow. Review of Systems Review of Systems: All systems reviewed & are unremarkable except as noted in HPI & below Denies chest pain or shortness of breath Physical Exam Constitutional: WD/WN, vitals as above Eyes: + anicteric sclerae Neck: trachea midline, no thyromegaly Respiratory: normal respiratory effort, lungs clear to auscultation Cardiovascular: RRR, no murmur, no edema Chest (Breasts): Chest: normal inspection of chest Gastrointestinal (Abdomen): normal bowel sounds, soft, nontender, no hepatosplenomegaly Musculoskeletal: Extremities: extremities normal to inspection; no cyanosis and no clubbing Skin: no rashes, warm and dry Neurologic: awake Psychiatric: A+Ox3, euthymic affect Lymphatic: no lymphedema Results & Data Results & Data ([facility]) Vital Signs (Past 12 Hours) Vital Signs Temp Pulse Resp BP Pulse Ox O2 Del Method 06/01/22 14:47 37.0 C 73 16 134/67 94 Room Air Laboratory Results 06/01/22 06/01/22 06/01/22 Range/Units 20:53 16:58 12:08 WBC (4.8-10.8) K/ul RBC (4.63-6.08) M/uL Hgb (14.0-18.0) g/dl Hct (40.1-51.0) % MCV (80.0-100.0) fL MCH (25.0-34.0) pg MCHC (32.0-36.0) g/dL RDW Std Deviation (36.4-46.3) fL RDW Coeff of Malgorzata (11.5-14.5) % Plt Count (130-400) K/uL MPV (9.4-12.4) fL Sodium (136-145) mmol/L Potassium (3.5-5.1) mmol/L Chloride (98-107) mmol/L Carbon Dioxide (21-32) mmol/L Anion Gap (3-11) BUN (6-23) mg/dl Creatinine (0.6-1.4) mg/dl Est Cr Clr Drug Dosing ml/min Est GFR ( Amer) ml/min Est GFR (Non-Af Amer) ml/min BUN/Creatinine Ratio (10-20) Glucose (70-99(Fasting)) mg/dl POC Glucose 135 H 142 H 142 H (70-99) mg/dl Calcium (8.5-10.1) mg/dl Total Bilirubin (0.2-1.0) mg/dl AST (13-39) U/L ALT (7-52) U/L Alkaline Phosphatase (34-104) U/L Total Protein (6.0-8.3) gm/dl Albumin (3.4-5.0) gm/dl Globulin (2.5-4.0) gm/dl Albumin/Globulin Ratio (0.9-2) 06/01/22 06/01/22 06/01/22 Range/Units 07:49 07:49 06:16 WBC 12.66 H (4.8-10.8) K/ul RBC 5.31 (4.63-6.08) M/uL Hgb 16.2 (14.0-18.0) g/dl Hct 45.7 (40.1-51.0) % MCV 86.1 (80.0-100.0) fL MCH 30.5 (25.0-34.0) pg MCHC 35.4 (32.0-36.0) g/dL RDW Std Deviation 39.8 (36.4-46.3) fL RDW Coeff of Malgorzata 12.7 (11.5-14.5) % Plt Count 244 (130-400) K/uL MPV 10.5 (9.4-12.4) fL Sodium 135 L (136-145) mmol/L Potassium 4.0 (3.5-5.1) mmol/L Chloride 101 (98-107) mmol/L Carbon Dioxide 28 (21-32) mmol/L Anion Gap 6 (3-11) BUN 18 (6-23) mg/dl Creatinine 1.10 (0.6-1.4) mg/dl Est Cr Clr Drug Dosing 103.6 ml/min Est GFR ( Amer) 87.7 ml/min Est GFR (Non-Af Amer) 75.7 ml/min BUN/Creatinine Ratio 16.4 (10-20) Glucose 178 H (70-99(Fasting)) mg/dl POC Glucose 177 H (70-99) mg/dl Calcium 9.2 (8.5-10.1) mg/dl Total Bilirubin 0.8 (0.2-1.0) mg/dl AST 18 (13-39) U/L ALT 26 (7-52) U/L Alkaline Phosphatase 68 (34-104) U/L Total Protein 7.6 (6.0-8.3) gm/dl Albumin 4.2 (3.4-5.0) gm/dl Globulin 3.4 (2.5-4.0) gm/dl Albumin/Globulin Ratio 1.2 (0.9-2) PG Care Time/CCT Total # of Minutes Spent Total Time Spent with Patient: Total time spent is greater than 50% in coordination of care (as documented) at patient's floor/unit and/or counseling patient: Coding Level of Care Code 14256 Subseq Hosp Care Lvl 2 Diagnoses Lumbar radiculopathy M54.16 DM II (diabetes mellitus, type II), controlled E11.9 Hypercholesteremia E78.00 Anxiety F41.9
[2022-06-02] MEDS: ACETAMINOPHEN 325 MG TAB PO PRN ×2 (00:13→07:00)
[2022-06-02] MEDS: oxyCODONE HCL IR 5 MG TAB (IMMEDIATE RELEASE) PO PRN ×3 (00:14→23:16)
[2022-06-02] MEDS: INSULIN ASPART PER UNIT SC SCH ×4 (06:24→21:25)
[2022-06-02] MEDS: POLYETHYLENE (MIRALAX) 17 GM PACK PO SCH (08:02)
[2022-06-02] MEDS: CITALOPRAM 20 MG TAB PO SCH (08:03)
[2022-06-02] MEDS: DOCUSATE SODIUM/SENNA 50/8.6MG TAB PO SCH ×2 (08:03→21:24)
[2022-06-02] MEDS: GABAPENTIN 100 MG CAP PO SCH ×2 (08:03→21:24)
[2022-06-02] MEDS: ATORVASTATIN 10 MG TAB PO SCH (08:04)
[2022-06-02 08:33] LABS: Estimated Average Glucose 186 mg/dl; Hemoglobin A1C 8.1 % (4.5-5.6)
[2022-06-02 08:40] LABS: BUN Creatinine Ratio 18.6 (10-20); Creatinine Clr Calc Pharmacy 96.6 ml/min; Est GFR (African American) 80.6 ml/min; Est GFR (Non-African American) 69.5 ml/min; Potassium 3.7 mmol/L (3.5-5.1)
[2022-06-02] MEDS ORDERED: LACTATED RINGER'S 1,000 ML IV SCH (09:45)
--- NOTE | 2022-06-02 09:54 | Electrocardiogram Report ---
Test Reason : Blood Pressure : / mmHG Vent. Rate : 085 BPM Atrial Rate : 085 BPM P-R Int : 156 ms QRS Dur : 080 ms QT Int : 376 ms P-R-T Axes : 072 066 050 degrees QTc Int : 447 ms Normal sinus rhythm Normal ECG No previous ECGs available Confirmed by Nitish Martinez ([id number]) on 06/02/2022 9:54:08 AM Referred By: REFERRED SELF Confirmed By:Nitish Martinez
--- NOTE | 2022-06-02 10:06 | Anesthesiology Consultation ---
Date of Service June 02, 2022 Assessment & Plan (1) Encounter for pre-operative examination: Chart Review Chart Review: Acceptable Risk for Surgery and Patient NOT seen in Pre Admission Testing Consults Requested none History Surgery Operation Date: 06/02/22 13:00 Proposed Procedures p L2-L3 Decomprsssion Fusion - Jason Goodwin DO Height/Weight Height: 5 ft 11 in Weight: 125.6 kg Allergies Allergy/AdvReac Type Severity Reaction Status Date / Time morphine AdvReac Vomiting Verified 05/31/22 15:34 Medications Home Medications Medication Instructions Recorded Confirmed Last Taken atorvastatin 10 mg tablet 10 mg PO DAILY 05/31/22 05/31/22 Unknown citalopram 20 mg tablet 20 mg PO DAILY 05/31/22 05/31/22 Unknown ibuprofen 200 mg tablet 800 mg PO Q8 PRN Pain 05/31/22 05/31/22 05/31/22 06:00 Active Medications Generic Name Dose Route Start Last Admin Trade Name Freq PRN Reason Stop Dose Admin Acetaminophen 650 mg 05/31/22 17:49 06/02/22 07:00 Acetaminophen 325 Mg Tab PO 06/30/22 17:48 650 mg Q6H PRN Administration mild pain/fever Atorvastatin Calcium 10 mg 06/01/22 09:00 06/02/22 08:04 Atorvastatin 10 Mg Tab PO 07/01/22 08:59 10 mg DAILY TANYA Administration Citalopram Hydrobromide 20 mg 06/01/22 09:00 06/02/22 08:03 Citalopram 20 Mg Tab PO 07/01/22 08:59 20 mg DAILY TANYA Administration Gabapentin 100 mg 05/31/22 18:00 06/02/22 08:03 Gabapentin 100 Mg Cap PO 06/30/22 17:59 100 mg BID TANYA Administration Insulin Aspart 0 units 06/02/22 06:00 06/02/22 06:24 Insulin Aspart Per Unit SC 07/02/22 05:59 Not Given Q6 TANYA Oxycodone HCl 5 mg 05/31/22 17:49 06/02/22 07:00 Oxycodone Hcl Ir 5 Mg Tab (Immediate Release) PO 06/14/22 17:48 5 mg Q4H PRN Administration MODERATE Pain (4,5,6) & Pre PT Polyethylene Glycol 17 gm 06/01/22 14:30 06/02/22 08:02 Polyethylene (Miralax) 17 Gm Pack PO 07/01/22 14:29 17 gm DAILY TANYA Administration Senna/Docusate Sodium 1 tab 06/01/22 14:30 06/02/22 08:03 Docusate Sodium/Senna 50/8.6mg Tab PO 07/01/22 14:29 1 tab QAM TANYA Administration Past Medical History Medical History Diabetes Past Surgical History Surgical History No pertinent past surgical history Social History Smoking Status: Never smoker Do You Dip or Chew Tobacco: No Hx Alcohol Use: Yes Alcohol type: beer and hard liquor alcohol intake frequency: a few times a week Hx Substance Use: No Physical Exam Vital Signs Last Vital Signs Temp 97.9 F 06/02/22 07:06 Pulse 51 L 06/02/22 07:06 Resp 16 06/02/22 07:06 BP 150/90 H 06/02/22 07:06 Pulse Ox 94 06/02/22 07:06 O2 Del Method 06/02/22 07:06 Testing Laboratory Results 06/01/22 07:49 06/02/22 07:16 Hemoglobin A1c 8.1 % (4.5-5.6) H 06/02/22 07:16 06/02/22 06:01 POC Glucose 120 H Electrocardiogram Date: 05/31/22 Findings: + NSR @
[2022-06-02] MEDS ORDERED: ROCURONIUM BROMIDE 10 MG/ML 5 ML VIAL IV ONE ×2 (12:30→14:12)
[2022-06-02] MEDS ORDERED: ONDANSETRON INJ 2 MG/ML 2 ML VIAL ONE ×2 (12:30→13:22)
[2022-06-02] MEDS ORDERED: PROPOFOL IV EMULSION 10 MG/ML 20 ML VIAL IV ONE (12:30)
[2022-06-02] MEDS ORDERED: LIDOCAINE 2% MPF LOCAL 5 ML VIAL INFIL ONE (12:30)
[2022-06-02] MEDS ORDERED: HYDROmorphone INJ 2 MG/ML SYR/VIAL ONE (12:30)
[2022-06-02] MEDS ORDERED: ceFAZolin 330 MG/ML 1 GM VIAL ONE (12:31)
[2022-06-02] MEDS ORDERED: BUPIVACAINE/EPINEPHRINE 0.25% 1:200,000 30 ML VIAL ONE (12:31)
[2022-06-02] MEDS ORDERED: MIDAZOLAM HCL 1 MG/ML 2ML VIAL ONE (12:34)
[2022-06-02] MEDS ORDERED: ATROPINE SULFATE 0.1 MG/ML 10ML SYR IV PRN (13:01)
[2022-06-02] MEDS ORDERED: ONDANSETRON INJ 2 MG/ML 2 ML VIAL IV PRN ×2 (13:01→17:21)
[2022-06-02] MEDS ORDERED: LABETALOL HCL IV 5 MG/ML 20ML IV PRN (13:01)
[2022-06-02] MEDS ORDERED: ePHEDrine sulfate 50 MG/ML AMP IV PRN (13:01)
--- NOTE | 2022-06-02 13:08 | History & Physical Bridge Note ---
Date of Service June 02, 2022 History & Physical Bridge Note I have examined the patient, reviewed the History & Physical and in the interval since the performance of the History & Physical I have noted the following changes of clinical significance: Patient continues to require significant pain medication to control his pain. He is unable to ambulate secondary to severe radiculopathy and now weakness with right quadricep and hip flexion. Subsequently recommending emergent decompression and fusion to avoid permanent neurologic deficits.
[2022-06-02] MEDS ORDERED: ceFAZolin 3000MG/72.5 ML BAG IV ONE (13:17)
[2022-06-02] MEDS ORDERED: DEXAMETHASONE SOD INJ 4 MG/ML VIAL ONE (13:23)
[2022-06-02] MEDS ORDERED: GLYCOPYRROLATE 0.2 MG/ML VIAL ONE (14:12)
[2022-06-02] MEDS ORDERED: FLOSEAL HEMOSTATIC MATRIX 10ML TOP ONE (14:31)
[2022-06-02] MEDS ORDERED: fentaNYL citrate 100 MCG/2 ML VIAL ONE (14:46)
[2022-06-02] MEDS ORDERED: SUGAMMADEX SODIUM 200 MG/2 ML VIAL IV ONE (14:47)
--- NOTE | 2022-06-02 15:29 | Operative Report ---
Post Operative Report Pre & Post Diagnosis Operation Date: 06/02/22 13:00 Pre-Op Diagnosis: Lumbar radiculopathy. Post-Op Diagnosis: Lumbar radiculopathy. I identified the patient and participated in the time-out.: Yes Procedure Operation Date: 06/02/22 13:00 Actual Procedures #1 lumbar decompression bilateral medial facetectomies and foraminotomies L2-3. #2 posterior spinal fusion L2-L3. #3 placement posterior instrumentation L2-L3. #4 interbody fusion L2-3. #5 placement of Spira 15 x 26 mm cage at L2-L3. #6 placement locally harvested morselized autograft in the posterior gutters. #7 placement of I factor combined with V toss interbody space and posterior lateral gutters. Surgeon Jason Goodwin, DO Technical Adjuster Marge Love Estimated Blood Loss 150 Findings See Below The patient is 5 feet 11 inches tall weighing over 125 kg with a BMI in excess of 38. The patient's body habitus did contribute to significant technical difficulty requiring her deepest retractors longus instruments in order to perform his procedure. This at least 50% increased operative time. Specimens None Indications This is a 52-year-old male that presents emergency room with severe right buttock pain radiating to the groin and thigh. He is presenting with progressive neuro deficit and inability to ambulate and is here for emergent decompression and fusion to preserve neurologic function. Description of Procedure On exam patient was met with identified informed consent obtained. Patient was then taken to the operative suite underwent a patient placed in a prone position the Quang table top Edu frame. All bony prominences well-padded eyes inspected to ensure no external pressure placed upon the. This point the lumbar spine was prepped and draped in normal sterile fashion. Sharp dissection with the assistance of Bovie cautery was performed down to and exposing the lamina and transverse processes of L2-L3 bilaterally. From caudal cephalad fashion complete laminectomy of L2 was performed including bilateral medial facetectomies with complete facetectomy on the right to expose a severely compressed exiting L2 nerve root. Disc material extending from the foramen into the extraforaminal region. It was removed in its entirety to free up the nerve root. Pedicle screws then placed in L2 and L3 bilaterally with assistance of fluoroscopy and the properly sized zac placed. By way of a transforaminal approach and right complete discectomy of L2-L3 was performed endplates curetted to subcortical bleeding bone and a 15 x 26 mm Spira cage filled with I factor tapped in position. The rods then compressed locked into final position bilaterally. The transverse processes of L2-L3 burred to subcortically bone. I factor combined with V toss and locally harvested morselized autograft was placed in the posterior gutters. 15 round MIRANDA drain inserted. The incision was then closed with 1 Vicryl to fascia 2-0 Vicryl subcutaneously and 4 Monocryl for final skin closure. Steri-Strip sterile dressings placed. Patient waken taken PACU stable condition. Please note spinal cord monitoring was utilized throughout the procedure no changes noted. Lastly Marge Love was present for complex portions of the surgery and final skin closure. I attest to the content of the Intraoperative Record and any orders documented therein. Any exceptions are noted below.
--- NOTE | 2022-06-02 15:50 | Fluoroscopy Report ---
FL lumbar spine 2-3V CLINICAL HISTORY: L2-3 DFI TECHNIQUE: 2 views were obtained with the C-arm in the OR with the above procedure. Total fluoroscopy time was 26.5 seconds. Total skin dose was 23.38 mGy. Comparison: None available at the time of this dictation. FINDINGS/IMPRESSION: Intraoperative images were obtained of L2-L3 decompression and fusion. Please correlate with intraoperative fluoroscopy and operative report. ACT 112: Negative or not required by law. Electronically signed by: Lambert Mireles M.D. 06/02/2022 3:49 PM
[2022-06-02] MEDS: fentaNYL citrate 100 MCG/2 ML VIAL IV PRN ×4 (15:52→16:07)
[2022-06-02] MEDS: HYDROmorphone INJ 2 MG/ML SYR/VIAL IV PRN ×4 (16:12→16:28)
[2022-06-02] MEDS ORDERED: HYDROmorphone INJ 0.5 MG/0.5 ML SYR IV PRN ×2 (16:37→17:21)
[2022-06-02] MEDS ORDERED: HYDROmorphone INJ 1 MG/ML SYRINGE ONE (16:40)
[2022-06-02] MEDS ORDERED: diphenhydrAMINE Capsule 25 MG CAP PO PRN (17:21)
[2022-06-02] MEDS ORDERED: traMADol HCL 50 MG TABLET PO PRN (17:21)
[2022-06-02] MEDS ORDERED: FAMOTIDINE 20 MG TAB PO PRN (17:21)
[2022-06-02] MEDS ORDERED: bisacodyL 10 MG SUPP PR PRN (17:21)
[2022-06-02] MEDS ORDERED: PROMETHAZINE HCL 12.5 MG in SODIUM CHLORIDE 0.9% 50 ML IV PRN (17:21)
[2022-06-02] MEDS ORDERED: hydrOXYzine HCl 25 MG TAB PO PRN (17:21)
[2022-06-02] MEDS ORDERED: NALOXONE HCL 0.4 MG/1 ML VIAL/CARP IV PRN (17:21)
[2022-06-02] MEDS ORDERED: SOD PHOSPHATE/SOD BIPHOSPHATE ENEMA 132 ML BTL PR PRN (17:21)
[2022-06-02] MEDS ORDERED: PHARMACY GLYCEMIC MGMT CONSULT PRN (17:21)
[2022-06-02] MEDS ORDERED: METOCLOPRAMIDE HCL INJ 5 MG/ML 2 ML VIAL IV PRN (17:21)
[2022-06-02] MEDS ORDERED: ACETAMINOPHEN 1,000 MG/100 ML VIAL IV PRN (17:21)
[2022-06-02] MEDS ORDERED: ACETAMINOPHEN 500 MG TAB PO PRN (17:21)
[2022-06-02] MEDS ORDERED: ALUMINUM/MAGNESIUM SUSP 30 ML UDC PO PRN (17:21)
[2022-06-02] MEDS ORDERED: LORazepam 0.5 MG TAB PO PRN (17:21)
[2022-06-02] MEDS ORDERED: LORazepam 0.5 MG in SYRINGE 0.25 ML IV PRN (17:21)
[2022-06-02] MEDS ORDERED: MAGNESIUM HYDROXIDE SUSP 30 ML UDC PO PRN (17:21)
[2022-06-02] MEDS ORDERED: ONDANSETRON 4 MG OD TAB PO PRN (17:21)
--- NOTE | 2022-06-02 17:38 | Anesthesiology Progress Note ---
Date of Service June 02, 2022 Anesthesia Post Procedure Vital Signs Vital Signs: Temp Pulse Resp BP BP Pulse Ox O2 Del Method 06/02/22 17:22 36.7 C 86 14 133/80 90 Room Air 06/02/22 16:55 36.4 C L 87 16 132/81 97 Nasal Cannula 06/02/22 16:45 80 18 152/79 H 95 Nasal Cannula 06/02/22 16:35 66 11 L 147/79 H 94 Nasal Cannula 06/02/22 16:25 64 12 143/78 H 95 Nasal Cannula 06/02/22 16:15 92 H 13 156/76 H 95 Oxymask 06/02/22 16:05 83 12 153/89 H 97 Oxymask 06/02/22 15:55 82 20 150/101 H 96 Oxymask 06/02/22 15:45 36.6 C 93 H 10 L 180/94 H 93 Oxymask 06/02/22 13:03 36.8 C 62 18 173/99 H 97 Room Air 06/02/22 07:06 36.6 C 51 L 16 150/90 H 94 Room Air 06/01/22 22:16 37.2 C 69 20 138/81 96 Room Air O2 Flow Rate 06/02/22 17:22 06/02/22 16:55 2 06/02/22 16:45 2 06/02/22 16:35 2 06/02/22 16:25 2 06/02/22 16:15 2 06/02/22 16:05 5 06/02/22 15:55 7 06/02/22 15:45 5 06/02/22 13:03 06/02/22 07:06 06/01/22 22:16 Pain Intensity Back: Pain Intensity: 8 Transfer of Care Handoff Completed per policy Notes Mental Status: alert / awake / arousable Patient Amnestic to Procedure: Yes Nausea / Vomiting: adequately controlled Pain: adequately controlled Airway Patency, RR, SpO2: stable & adequate BP & HR: stable & adequate Hydration State: stable & adequate Anesthetic Complications: no major complications apparent
[2022-06-02] MEDS: HYDROmorphone INJ 1 MG/ML SYRINGE IV PRN (17:42)
[2022-06-02] MEDS: SODIUM CHLORIDE 0.9% 1000ML 1,000 ML IV SCH (17:48)
[2022-06-02] MEDS ORDERED: NovoLIN-N (NPH) PER UNIT CHARGE SQ ONE (18:00)
--- NOTE | 2022-06-02 20:15 | Hospitalist Progress Note ---
Date of Service June 02, 2022 Assessment & Plan (1) Lumbar radiculopathy: Plan: Presents with acutely worsening right L2 lumbar radiculopathy after an injury initially sustained a few weeks ago With intractable pain as well as sensory deficit and some weakness in the right proximal lower extremity Was only slightly improved after receiving IV Decadron in the ER, p.o. oxycodone, starting gabapentin and baclofen as well as lidocaine patch Now s/p lumbar discectomy and fusion L2-3 on 06/02 Post op management as per Ortho -pain meds, bowel regimen, drain as per Ortho -follow CBC, BMP in AM -is on decadron (2) DM II (diabetes mellitus, type II), controlled: Plan: Not on medication at home Did receive Decadron making some of his blood sugars elevated -Continue with accu checks ACHS -NovoLog ordered and now Pharmacy is consulted for glycemic management hemoglobin A1c high at 8.1%--> he will need metformin on discharge (3) Hypercholesteremia: Plan: -Continue atorvastatin (4) Anxiety: Plan: No acute issues -Continue citalopram Plan DVT prophylaxis- SCDs Disposition-continued stay on medical/surgical unit Admission and Anticipated Discharge Date Admission Date: May 31, 2022 Subjective Pt returned from surgery recently and is feeling sleepy, doesn't feel like eating yet. No CP or SOB. No pain in right buttocks or thigh, still some numbness in thigh. Review of Systems Review of Systems: All systems reviewed & are unremarkable except as noted in HPI & below Physical Exam Constitutional: WD/WN, vitals as above Eyes: + anicteric sclerae Neck: trachea midline, no thyromegaly Respiratory: normal respiratory effort, lungs clear to auscultation Cardiovascular: RRR, no murmur, no edema Chest (Breasts): Chest: normal inspection of chest Gastrointestinal (Abdomen): normal bowel sounds, soft, nontender, no hepatosplenomegaly Musculoskeletal: Extremities: extremities normal to inspection; no cyanosis and no clubbing Skin: no rashes, warm and dry Neurologic: moves all extremities and awake; no focal motor deficits Psychiatric: A+Ox3, euthymic affect Lymphatic: no lymphedema Results & Data Results & Data ([facility]) Vital Signs (Past 12 Hours) Vital Signs Temp Pulse Resp BP BP Pulse Ox O2 Del Method 06/02/22 19:25 36.3 C L 89 20 124/77 94 Nasal Cannula 06/02/22 18:14 36.7 C 75 15 132/72 91 Nasal Cannula 06/02/22 17:46 76 16 126/79 94 Room Air 06/02/22 17:22 36.7 C 86 14 133/80 90 Room Air 06/02/22 16:55 36.4 C L 87 16 132/81 97 Nasal Cannula 06/02/22 16:45 80 18 152/79 H 95 Nasal Cannula 06/02/22 16:35 66 11 L 147/79 H 94 Nasal Cannula 06/02/22 16:25 64 12 143/78 H 95 Nasal Cannula 06/02/22 16:15 92 H 13 156/76 H 95 Oxymask 06/02/22 16:05 83 12 153/89 H 97 Oxymask 06/02/22 15:55 82 20 150/101 H 96 Oxymask 06/02/22 15:45 36.6 C 93 H 10 L 180/94 H 93 Oxymask 06/02/22 13:03 36.8 C 62 18 173/99 H 97 Room Air O2 Flow Rate 06/02/22 19:25 2 06/02/22 18:14 2 06/02/22 17:46 2 06/02/22 17:22 06/02/22 16:55 2 06/02/22 16:45 2 06/02/22 16:35 2 06/02/22 16:25 2 06/02/22 16:15 2 06/02/22 16:05 5 06/02/22 15:55 7 06/02/22 15:45 5 06/02/22 13:03 Laboratory Results 06/02/22 06/02/22 06/02/22 Range/Units 17:28 15:59 11:50 Sodium (136-145) mmol/L Potassium (3.5-5.1) mmol/L Chloride (98-107) mmol/L Carbon Dioxide (21-32) mmol/L Anion Gap (3-11) BUN (6-23) mg/dl Creatinine (0.6-1.4) mg/dl Est Cr Clr Drug Dosing ml/min Est GFR ( Amer) ml/min Est GFR (Non-Af Amer) ml/min BUN/Creatinine Ratio (10-20) Glucose (70-99(Fasting)) mg/dl POC Glucose 173 H 139 H 120 H (70-99) mg/dl Estimat Average Glucose mg/dl Hemoglobin A1c (4.5-5.6) % Calcium (8.5-10.1) mg/dl 06/02/22 06/02/22 06/02/22 Range/Units 07:16 07:16 06:01 Sodium 137 (136-145) mmol/L Potassium 3.7 (3.5-5.1) mmol/L Chloride 101 (98-107) mmol/L Carbon Dioxide 28 (21-32) mmol/L Anion Gap 8 (3-11) BUN 22 (6-23) mg/dl Creatinine 1.18 (0.6-1.4) mg/dl Est Cr Clr Drug Dosing 96.6 ml/min Est GFR ( Amer) 80.6 ml/min Est GFR (Non-Af Amer) 69.5 ml/min BUN/Creatinine Ratio 18.6 (10-20) Glucose 130 H (70-99(Fasting)) mg/dl POC Glucose 120 H (70-99) mg/dl Estimat Average Glucose 186 mg/dl Hemoglobin A1c 8.1 H (4.5-5.6) % Calcium 9.0 (8.5-10.1) mg/dl 06/01/22 Range/Units 20:53 Sodium (136-145) mmol/L Potassium (3.5-5.1) mmol/L Chloride (98-107) mmol/L Carbon Dioxide (21-32) mmol/L Anion Gap (3-11) BUN (6-23) mg/dl Creatinine (0.6-1.4) mg/dl Est Cr Clr Drug Dosing ml/min Est GFR ( Amer) ml/min Est GFR (Non-Af Amer) ml/min BUN/Creatinine Ratio (10-20) Glucose (70-99(Fasting)) mg/dl POC Glucose 135 H (70-99) mg/dl Estimat Average Glucose mg/dl Hemoglobin A1c (4.5-5.6) % Calcium (8.5-10.1) mg/dl PG Care Time/CCT Total # of Minutes Spent Total Time Spent with Patient: Total time spent is greater than 50% in coordination of care (as documented) at patient's floor/unit and/or counseling patient: Coding Level of Care Code 43216 Subseq Hosp Care Lvl 1 Diagnoses Lumbar radiculopathy M54.16 DM II (diabetes mellitus, type II), controlled E11.9 Hypercholesteremia E78.00 Anxiety F41.9
[2022-06-02] MEDS: ceFAZolin 2000MG 2,000 MG/15 ML SYR IV SCH (21:39)
[2022-06-03] MEDS: INSULIN ASPART PER UNIT SC SCH ×6 (00:18→20:30)
[2022-06-03] MEDS: SODIUM CHLORIDE 0.9% 1000ML 1,000 ML IV SCH (00:25)
[2022-06-03] MEDS: oxyCODONE HCL IR 5 MG TAB (IMMEDIATE RELEASE) PO PRN ×3 (03:23→22:01)
[2022-06-03] MEDS: ceFAZolin 2000MG 2,000 MG/15 ML SYR IV SCH (06:08)
[2022-06-03] MEDS: POLYETHYLENE (MIRALAX) 17 GM PACK PO SCH ×4 (06:09→23:18)
[2022-06-03 07:07] LABS: Basophils # (auto) 0.01 K/uL (0-0.2); Basophils % (auto) 0.1 %; Hematocrit (blood only) 42.1 % (40.1-51.0); Hemoglobin 14.4 g/dl (14.0-18.0); Immature Granulocytes # (auto) 0.07 K/uL (0.00-0.02); Immature Granulocytes % (auto) 0.6 %; Lymphocytes # (auto) 1.18 K/uL (1.2-3.4); Lymphocytes % (auto) 10.1 %; Mean Corpuscular Hemoglobin 30.4 pg (25.0-34.0); Mean Corpuscular Hgb Conc 34.2 g/dL (32.0-36.0); Mean Corpuscular Volume 88.8 fL (80.0-100.0); Mean Platelet Volume 10.9 fL (9.4-12.4); Monocytes # (auto) 1.02 K/uL (0.24-0.82); Monocytes % (auto) 8.7 %; Neutrophils % (auto) 80.5 %; Platelet Count 209 K/uL (130-400); RDW Coefficient of Variation 12.7 % (11.5-14.5); RDW Standard Deviation 42.1 fL (36.4-46.3); Red Blood Count 4.74 M/uL (4.63-6.08); White Blood Count 11.68 K/ul (4.8-10.8)
[2022-06-03 07:28] LABS: BUN Creatinine Ratio 17.9 (10-20); Calcium 8.7 mg/dl (8.5-10.1); Creatinine Clr Calc Pharmacy 97.4 ml/min; Est GFR (African American) 81.4 ml/min; Est GFR (Non-African American) 70.3 ml/min; Potassium 4.3 mmol/L (3.5-5.1)
[2022-06-03] MEDS: GABAPENTIN 100 MG CAP PO SCH ×2 (08:48→20:39)
[2022-06-03] MEDS: ATORVASTATIN 10 MG TAB PO SCH (08:48)
[2022-06-03] MEDS: dexAMETHasone 6 MG in SYRINGE 0 ML IV SCH (08:48)
[2022-06-03] MEDS ORDERED: NovoLIN-N (NPH) PER UNIT CHARGE SQ ONE (09:00)
[2022-06-03] MEDS: HYDROmorphone INJ 1 MG/ML SYRINGE IV PRN ×2 (10:38→16:25)
--- NOTE | 2022-06-03 11:00 | Pharmacy Report ---
Pharmacy Glycemic Short Note 2 - Date of Service June 03, 2022 - Glycemic Short BSG Results (Last 24 hours): 06/02/22 06/02/22 06/02/22 11:50 15:59 17:28 Glucose POC Glucose 120 H 139 H 173 H 06/02/22 06/03/22 06/03/22 20:25 00:00 04:15 Glucose POC Glucose 212 H 176 H 140 H 06/03/22 06/03/22 06:15 08:05 Glucose 135 H POC Glucose 137 H OUTPATIENT ANTIDIABETIC REGIMEN: * Currently not on any anti-diabetic meds. Was prescribed Rybelsus 7 mg daily in January 2022. * HbA1c = 8.1% ASSESSMENT: * 52 y/o M admitted for back pain, currently s/p surgery. Patient with Type 2 diabetes but was not taking any anti-diabetic meds at home. * He had lumbar decompression, spinal fusion surgery yesterday and started on IV Dexamethasone which led to steroid induced hyperglycemia yesterday night. * Basal NPH ~0.3 units/kg SQ was given yesterday x1 around 18:00. BSGs trended down by midnight. * IV Dexamethasone continued this AM. A slightly lower dose of NPH ordered this AM to be given with the Dex since steroid dose was decreased. * Novolog parameters started yesterday based on weight and stress of 2. PLAN FOR INPATIENT GLYCEMIC CONTROL: * Basal insulin * NPH 35 units SQ x1 dose given yesterday. * NPH 30 units SQ today AM with IV Dex. * Bolus insulin * NovoLog per scale ACHS or Q6hrs while NPO * Goal Range: Low 110 mg/dL - High 140 mg/dL * Correction Factor: 20 mg/dL/unit * Nutritional / Prandial insulin per carb ratio of 1 unit per 5 grams CHO consumed
--- NOTE | 2022-06-03 12:43 | Orthopedic Progress Note ---
Date of Service June 03, 2022 Assessment & Plan (1) Lumbar radiculopathy: Plan: At this time we will continue physical therapy monitor his MIRANDA output hopefully discharge home this weekend. Admission and Anticipated Discharge Date Admission Date: May 31, 2022 Subjective Patient's back pain is controlled leg symptoms markedly improved Physical Exam Physical Exam: Patient is up and ambulating. Excellent strength to strength testing. Results & Data ([facility]) Vital Signs (Past 12 Hours) Vital Signs Temp Pulse Resp BP BP Pulse Ox O2 Del Method 06/03/22 07:48 36.9 C 68 16 123/75 91 06/03/22 04:10 36.5 C 76 15 125/70 97 Room Air
--- NOTE | 2022-06-03 17:46 | Hospitalist Progress Note ---
Date of Service June 03, 2022 Assessment & Plan (1) Lumbar radiculopathy: Plan: Presents with acutely worsening right L2 lumbar radiculopathy after an injury initially sustained a few weeks ago With intractable pain as well as sensory deficit and some weakness in the right proximal lower extremity Was only slightly improved after receiving IV Decadron in the ER, p.o. oxycodone, starting gabapentin and baclofen as well as lidocaine patch Now s/p lumbar discectomy and fusion L2-3 on 06/02 Post op management as per Ortho-doing as expected, some pain but controlled Still no BM--> give bisacodyl SD in addition to Miralax, docusate etc Hgb normal after surgery vitals acceptable, renal function normal -pain meds, bowel regimen, drain as per Ortho -is on decadron (2) DM II (diabetes mellitus, type II), controlled: Plan: Not on medication at home Did receive Decadron making some of his blood sugars elevated -Continue with accu checks ACHS -NovoLog ordered and now Pharmacy is consulted for glycemic management hemoglobin A1c high at 8.1%--> he has not been able to tolerate metformin in the past due to significant diarrhea--> advise SGLT2 or Januvia etc but defer to PCP preference. Pt also would like to make dietary changes as he drinks a lot of sodas and eats candy frequently (3) Hypercholesteremia: Plan: -Continue atorvastatin (4) Anxiety: Plan: No acute issues -Continue citalopram Plan DVT prophylaxis- SCDs Disposition-continued stay on medical/surgical unit, progressing, possible dc to home Sat or Sun Admission and Anticipated Discharge Date Admission Date: May 31, 2022 Subjective Pt having some pain with certain positions in lower back but better now with pain meds. Still no BM for 4 days. Is eating/drinking, no N/V, no abd pain. No CP, SOB. Numbness in right groin is improving Review of Systems Review of Systems: All systems reviewed & are unremarkable except as noted in HPI & below Physical Exam Constitutional: WD/WN, vitals as above Eyes: + anicteric sclerae Neck: trachea midline, no thyromegaly Respiratory: normal respiratory effort, lungs clear to auscultation Cardiovascular: RRR, no murmur, no edema Chest (Breasts): Chest: normal inspection of chest Gastrointestinal (Abdomen): normal bowel sounds, soft, nontender, no hepatosplenomegaly Musculoskeletal: Extremities: extremities normal to inspection; no cyanosis and no clubbing Skin: no rashes, warm and dry Neurologic: moves all extremities and awake; no focal motor deficits Psychiatric: A+Ox3, euthymic affect Lymphatic: no lymphedema Results & Data Results & Data ([facility]) Vital Signs (Past 12 Hours) Vital Signs Temp Pulse Resp BP Pulse Ox 06/03/22 15:29 36.8 C 73 16 138/72 95 06/03/22 07:48 36.9 C 68 16 123/75 91 Laboratory Results 06/03/22 06/03/22 06/03/22 Range/Units 17:24 12:22 08:05 WBC (4.8-10.8) K/ul RBC (4.63-6.08) M/uL Hgb (14.0-18.0) g/dl Hct (40.1-51.0) % MCV (80.0-100.0) fL MCH (25.0-34.0) pg MCHC (32.0-36.0) g/dL RDW Std Deviation (36.4-46.3) fL RDW Coeff of Malgorzata (11.5-14.5) % Plt Count (130-400) K/uL MPV (9.4-12.4) fL Immature Gran % (Auto) % Neut % (Auto) % Lymph % (Auto) % Laurens % (Auto) % Eos % (Auto) % Baso % (Auto) % Neut # (Auto) (1.4-6.5) K/uL Lymph # (Auto) (1.2-3.4) K/uL Laurens # (Auto) (0.24-0.82) K/uL Eos # (Auto) (0-0.50) K/uL Baso # (Auto) (0-0.2) K/uL Immature Gran # (Auto) (0.00-0.02) K/uL Sodium (136-145) mmol/L Potassium (3.5-5.1) mmol/L Chloride (98-107) mmol/L Carbon Dioxide (21-32) mmol/L Anion Gap (3-11) BUN (6-23) mg/dl Creatinine (0.6-1.4) mg/dl Est Cr Clr Drug Dosing ml/min Est GFR ( Amer) ml/min Est GFR (Non-Af Amer) ml/min BUN/Creatinine Ratio (10-20) Glucose (70-99(Fasting)) mg/dl POC Glucose 142 H 112 H 137 H (70-99) mg/dl Calcium (8.5-10.1) mg/dl 06/03/22 06/03/22 06/03/22 Range/Units 06:15 06:15 04:15 WBC 11.68 H (4.8-10.8) K/ul RBC 4.74 (4.63-6.08) M/uL Hgb 14.4 (14.0-18.0) g/dl Hct 42.1 (40.1-51.0) % MCV 88.8 (80.0-100.0) fL MCH 30.4 (25.0-34.0) pg MCHC 34.2 (32.0-36.0) g/dL RDW Std Deviation 42.1 (36.4-46.3) fL RDW Coeff of Malgorzata 12.7 (11.5-14.5) % Plt Count 209 (130-400) K/uL MPV 10.9 (9.4-12.4) fL Immature Gran % (Auto) 0.6 % Neut % (Auto) 80.5 % Lymph % (Auto) 10.1 % Laurens % (Auto) 8.7 % Eos % (Auto) 0.0 % Baso % (Auto) 0.1 % Neut # (Auto) 9.40 H (1.4-6.5) K/uL Lymph # (Auto) 1.18 L (1.2-3.4) K/uL Laurens # (Auto) 1.02 H (0.24-0.82) K/uL Eos # (Auto) 0.00 (0-0.50) K/uL Baso # (Auto) 0.01 (0-0.2) K/uL Immature Gran # (Auto) 0.07 H (0.00-0.02) K/uL Sodium 136 (136-145) mmol/L Potassium 4.3 (3.5-5.1) mmol/L Chloride 100 (98-107) mmol/L Carbon Dioxide 30 (21-32) mmol/L Anion Gap 6 (3-11) BUN 21 (6-23) mg/dl Creatinine 1.17 (0.6-1.4) mg/dl Est Cr Clr Drug Dosing 97.4 ml/min Est GFR ( Amer) 81.4 ml/min Est GFR (Non-Af Amer) 70.3 ml/min BUN/Creatinine Ratio 17.9 (10-20) Glucose 135 H (70-99(Fasting)) mg/dl POC Glucose 140 H (70-99) mg/dl Calcium 8.7 (8.5-10.1) mg/dl 06/03/22 06/02/22 Range/Units 00:00 20:25 WBC (4.8-10.8) K/ul RBC (4.63-6.08) M/uL Hgb (14.0-18.0) g/dl Hct (40.1-51.0) % MCV (80.0-100.0) fL MCH (25.0-34.0) pg MCHC (32.0-36.0) g/dL RDW Std Deviation (36.4-46.3) fL RDW Coeff of Malgorzata (11.5-14.5) % Plt Count (130-400) K/uL MPV (9.4-12.4) fL Immature Gran % (Auto) % Neut % (Auto) % Lymph % (Auto) % Laurens % (Auto) % Eos % (Auto) % Baso % (Auto) % Neut # (Auto) (1.4-6.5) K/uL Lymph # (Auto) (1.2-3.4) K/uL Laurens # (Auto) (0.24-0.82) K/uL Eos # (Auto) (0-0.50) K/uL Baso # (Auto) (0-0.2) K/uL Immature Gran # (Auto) (0.00-0.02) K/uL Sodium (136-145) mmol/L Potassium (3.5-5.1) mmol/L Chloride (98-107) mmol/L Carbon Dioxide (21-32) mmol/L Anion Gap (3-11) BUN (6-23) mg/dl Creatinine (0.6-1.4) mg/dl Est Cr Clr Drug Dosing ml/min Est GFR ( Amer) ml/min Est GFR (Non-Af Amer) ml/min BUN/Creatinine Ratio (10-20) Glucose (70-99(Fasting)) mg/dl POC Glucose 176 H 212 H (70-99) mg/dl Calcium (8.5-10.1) mg/dl PG Care Time/CCT Total # of Minutes Spent Total Time Spent with Patient: Total time spent is greater than 50% in coordination of care (as documented) at patient's floor/unit and/or counseling patient: Coding Level of Care Code 70496 Subseq Hosp Care Lvl 2 Diagnoses Lumbar radiculopathy M54.16 DM II (diabetes mellitus, type II), controlled E11.9 Hypercholesteremia E78.00 Anxiety F41.9
[2022-06-03] MEDS: DOCUSATE SODIUM/SENNA 50/8.6MG TAB PO SCH (20:39)
[2022-06-04] MEDS: oxyCODONE HCL IR 5 MG TAB (IMMEDIATE RELEASE) PO PRN ×3 (02:52→17:11)
[2022-06-04] MEDS: POLYETHYLENE (MIRALAX) 17 GM PACK PO SCH ×2 (06:21→13:13)
[2022-06-04] MEDS: GABAPENTIN 100 MG CAP PO SCH (08:43)
[2022-06-04] MEDS: ATORVASTATIN 10 MG TAB PO SCH (08:43)
[2022-06-04] MEDS: dexAMETHasone 6 MG in SYRINGE 0 ML IV SCH (08:43)
--- NOTE | 2022-06-04 08:47 | Orthopedic Progress Note ---
Date of Service June 04, 2022 Assessment & Plan (1) Lumbar radiculopathy: Plan: At this time we will continue physical therapy monitor his MIRANDA output anticipate discharge home tomorrow. Admission and Anticipated Discharge Date Admission Date: May 31, 2022 Subjective Patient's leg pain is improving back pain controlled Physical Exam Physical Exam: Patient appears comfortable is constricted testing. Results & Data ([facility]) Vital Signs (Past 12 Hours) Vital Signs Temp Pulse Pulse Resp BP BP Pulse Ox 06/04/22 07:17 36.7 C 78 18 147/80 H 95 06/03/22 22:12 37.2 C 82 14 133/79 91 O2 Del Method 06/04/22 07:17 Room Air 06/03/22 22:12 Room Air
[2022-06-04] MEDS ORDERED: NovoLIN-N (NPH) PER UNIT CHARGE SQ ONE (09:00)
[2022-06-04] MEDS: INSULIN ASPART PER UNIT SC SCH ×4 (09:42→21:13)
--- NOTE | 2022-06-04 17:54 | Hospitalist Progress Note ---
Date of Service June 04, 2022 Assessment & Plan (1) Lumbar radiculopathy: Plan: Presents with acutely worsening right L2 lumbar radiculopathy after an injury initially sustained a few weeks ago With intractable pain as well as sensory deficit and some weakness in the right proximal lower extremity Was only slightly improved after receiving IV Decadron in the ER, p.o. oxycodone, starting gabapentin and baclofen as well as lidocaine patch Now s/p lumbar discectomy and fusion L2-3 on 06/02 Post op management as per Ortho-doing as expected, some pain but controlled Now moving bowels Is ambulating, OOB to chair Hgb normal after surgery vitals acceptable, renal function normal -pain meds, bowel regimen, drain as per Ortho -is on decadron x 1 more dose -check CBC, BMP in AM (2) DM II (diabetes mellitus, type II), controlled: Plan: Not on medication at home Did receive Decadron making some of his blood sugars elevated -Continue with accu checks ACHS -NovoLog ordered and now Pharmacy is consulted for glycemic management hemoglobin A1c high at 8.1%--> he has not been able to tolerate metformin in the past due to significant diarrhea--> advise SGLT2 or Januvia etc as outpatient but defer to PCP preference. Pt also would like to make dietary changes as he drinks a lot of sodas and eats candy frequently (3) Hypercholesteremia: Plan: -Continue atorvastatin (4) Anxiety: Plan: No acute issues -Continue citalopram Plan DVT prophylaxis- SCDs Disposition-continued stay on medical/surgical unit, progressing, plan for discharge to home tomorrow Admission and Anticipated Discharge Date Admission Date: May 31, 2022 Anticipated date of discharge: 06/05/22 Subjective Having some lower back pain but overall improved. Moved bowels this AM a moderate amount, eating and drinking, no N/V. No CP, SOB. Ambulated the halls twice today and was OOB to chair for an hour. Review of Systems Review of Systems: All systems reviewed & are unremarkable except as noted in HPI & below Physical Exam Constitutional: WD/WN, vitals as above Eyes: + anicteric sclerae Neck: trachea midline, no thyromegaly Respiratory: normal respiratory effort, lungs clear to auscultation Cardiovascular: RRR, no murmur, no edema Chest (Breasts): Chest: normal inspection of chest Gastrointestinal (Abdomen): normal bowel sounds, soft, nontender, no hepatosplenomegaly Musculoskeletal: Extremities: extremities normal to inspection; no cyanosis and no clubbing Skin: no rashes, warm and dry Neurologic: moves all extremities and awake; no focal motor deficits Psychiatric: A+Ox3, euthymic affect Lymphatic: no lymphedema Results & Data Results & Data ([facility]) Vital Signs (Past 12 Hours) Vital Signs Temp Pulse Resp BP Pulse Ox O2 Del Method 06/04/22 14:45 37.4 C 79 18 149/82 H 96 Room Air 06/04/22 07:17 36.7 C 78 18 147/80 H 95 Room Air Laboratory Results 06/04/22 06/04/22 06/04/22 Range/Units 17:18 12:50 08:32 POC Glucose 147 H 127 H 129 H (70-99) mg/dl 06/03/22 Range/Units 20:24 POC Glucose 139 H (70-99) mg/dl PG Care Time/CCT Total # of Minutes Spent Total Time Spent with Patient: Total time spent is greater than 50% in coordination of care (as documented) at patient's floor/unit and/or counseling patient: Coding Level of Care Code 09473 Subseq Hosp Care Lvl 2 Diagnoses Lumbar radiculopathy M54.16 DM II (diabetes mellitus, type II), controlled E11.9 Hypercholesteremia E78.00 Anxiety F41.9
[2022-06-04] MEDS: DOCUSATE SODIUM/SENNA 50/8.6MG TAB PO SCH (20:31)
[2022-06-05] MEDS: oxyCODONE HCL IR 5 MG TAB (IMMEDIATE RELEASE) PO PRN ×2 (00:59→11:28)
[2022-06-05 07:46] LABS: Basophils # (auto) 0.01 K/uL (0-0.2); Basophils % (auto) 0.1 %; Eosinophils # (auto) 0.06 K/uL (0-0.50); Eosinophils % (auto) 0.7 %; Hematocrit (blood only) 39.4 % (40.1-51.0); Hemoglobin 13.6 g/dl (14.0-18.0); Immature Granulocytes # (auto) 0.07 K/uL (0.00-0.02); Immature Granulocytes % (auto) 0.8 %; Lymphocytes % (auto) 28.2 %; Mean Corpuscular Hemoglobin 30.4 pg (25.0-34.0); Mean Corpuscular Hgb Conc 34.5 g/dL (32.0-36.0); Mean Corpuscular Volume 88.1 fL (80.0-100.0); Mean Platelet Volume 10.7 fL (9.4-12.4); Monocytes % (auto) 10.8 %; Neutrophils # (auto) 5.49 K/uL (1.4-6.5); Neutrophils % (auto) 59.4 %; Platelet Count 180 K/uL (130-400); RDW Coefficient of Variation 12.7 % (11.5-14.5); RDW Standard Deviation 41.2 fL (36.4-46.3); Red Blood Count 4.47 M/uL (4.63-6.08); White Blood Count 9.23 K/ul (4.8-10.8)
[2022-06-05 08:12] LABS: Calcium 8.8 mg/dl (8.5-10.1); Creatinine Clr Calc Pharmacy 128.1 ml/min; Est GFR (African American) 112.3 ml/min; Est GFR (Non-African American) 96.9 ml/min; Potassium 3.9 mmol/L (3.5-5.1)
[2022-06-05] MEDS: ATORVASTATIN 10 MG TAB PO SCH (08:41)
[2022-06-05] MEDS: dexAMETHasone 6 MG in SYRINGE 0 ML IV SCH (08:41)
[2022-06-05] MEDS ORDERED: NovoLIN-N (NPH) PER UNIT CHARGE SQ ONE (09:00)
[2022-06-05] MEDS: INSULIN ASPART PER UNIT SC SCH (09:15)
--- NOTE | 2022-06-05 11:14 | Discharge Summary ---
Date of Service June 05, 2022 Admission HPI Per Admitting Provider Angel Luis is a 52 year old male with a PMH significant for HTN, DM II, anxiety, and Dyslipidemia who presented to the [facility] ED on 05/31/22 with a chief complaint of low back pain and ambulatory dysfunction. At the time of the exam the patient was lying prone in his bed in no acute distress with his sitting bedside. They state that his back pain started approximately 1 month ago. He went head first down their pool slide when his right leg hit the side of their pool, he states that this cause him to "tweak" his back and have significant lower back pain. He rested for a few days and the pain began to improve. Last week he was attending a golf outing for his work when he felt a "pop" while swinging and then experiencing significant low back pain which radiated around his right hip, and to the front of his upper right thigh and groin. He experienced significant weakness in his right leg after this occurred and he again rested for multiple days in bed. Yesterday, he was feeling improved and went in the pool with his granddaughter, he did not do any significant strenuous activity. He felt well after but then woke up this morning with significant back pain. He tried to go to work but was unable to tolerate the pain. He tried Tylenol and baclofen but they only took the edge off a little. He is experiencing numbness and tingling in the same distribution as his lower back and right leg but denies saddle anesthesia and loss of bowel/bladder function. He currently takes atorvastatin for high cholesterol and citalopram for anxiety. In the ED the patient underwent MRI of the lumbar spine which revealed right lateral disc extrusion at L2-L3 which likely impinges on the exiting right L2 nerve root. The patient was given a lidocaine patch, 10 mg IV dexamethasone, and 1.5 mg of IV dilaudid. He states that his pain is currently a 2-3/10 after receiving the Dilaudid. He was evaluated by orthpedic surgery who recommended medicine admission, they will re-evaluate tomorrow and discuss possible treatment options with the patient and his ; they also consulted pain management. Principal Diagnosis Foraminal disc herniation with neurologic deficit Discharge Data Allergies Allergy/AdvReac Type Severity Reaction Status Date / Time morphine AdvReac Vomiting Verified 05/31/22 15:34 Consultations 05/31/22 14:13 ED Decision to Admit Stat 05/31/22 14:53 Consult Pain Management Routine 06/01/22 10:45 Consult Orthopedic Surgery Routine Procedures Performed Operation Date: 06/02/22 13:00 Actual Procedures p L2-L3 Decomprsssion Fusion - Jason Goodwin DO Ordered Studies 05/31/22 10:16 MR lumbar spine wo con Stat 06/02/22 13:00 FL lumbar spine 2-3V Routine Hospital Course (1) Lumbar radiculopathy: Patient was admitted with a severe leg pain and weakness. He underwent emergent decompression fusion tolerates well stable orthopedic for postoperative. Postop day 1 is up and ambulating progressed to postop day #2 on postop day #3 MIRANDA drain decreased probably. Pain well controlled. Strength improving. Subsequently discharged home. Discharge orders instructions from the chart for further review. Total Time Total Time Spent Total Time Spent (In Minutes): 20 minutes Discharge Plan Discharge Items Patient Disposition: Home - Self-Care Reason For Visit: LOW BACK PAIN Discharge Diagnosis: Lumbar disc herniation with radiculopathy and motor deficit Condition on Discharge: Good Activity: As commented below Non-emergency contact: Primary Care Provider Call non-emergency contact if: you have any medication questions Follow-up/Referrals: Jerry Art DO [Primary Care Provider] - Diet: Regular Addtl Attending Provider Instructions: ACTIVITY RECOMMENDATIONS: SELF CARE INSTRUCTIONS AFTER THORACIC/LUMBAR FUSIONS 1. You may walk to your tolerance. It is good exercise for your legs and back. Expect some back and intermittent leg aches and pains. 2. You may perform "counter-top" level activities (make a sandwich, nereida with a project, etc.). 3. No bending or lifting of more than 10 pounds or back twisting of any nature (roll like a log when turning in bed). 4. You may ride in a car for 20-30 minutes at a time. No driving until after your first visit with your doctor. 5. Frequent changes of position and restricting sitting to 30 minutes at a time will help limit the amount of back spasms and stiffness you may experience. 6. You may discontinue the use of ambulatory aids (cane, crutches, etc.) once your strength and confidence allow. 7. You may financial representative the shower and let water strike your incision when you arrive home at least once daily. Do not take a tub bath, sit in a hot tub or go into a swimming pool until after your first recheck in the office. SPECIAL CARE INSTRUCTIONS: VERY IMPORTANT TO READ AND REVIEW A. Your surgical incision has been closed with a cosmetic suture under the skin that will dissolve in about 6 weeks. In 14 days, you can use a pair of clean scissors and cut the suture that is left outside of the skin at the ends of your incision. 1. The small skin tapes can be removed 7 days after surgery if they have not fallen off by that point. 2. You may keep the wound open to air as much as possible to promote healing after post-op day number 5 unless told otherwise by your doctor. 3. If you think the wound looks like it is becoming infected (redness or worsening drainage) and/or you are experiencing fever, chill or worsening back pain and muscle spasms, contact the office so that we may evaluate you as soon as possible. B. Complications are uncommon, but please contact us if you have any signs or symptoms of: 1. wound infection (fever higher than 102.5 degrees F, redness, separation of wound, drainage, or increasing pain from the incision) 2. blood clots in legs (pain, swelling, redness and warmth in legs) 3. urinary tract infection (fever higher than 102.5 degrees F, burning upon urination or increased frequency of urination) 4. nerve problems (inability to walk on your toes or heels, numbness, loss of bowel or bladder control) 5. any other symptoms that concern you C. Please call the office at if you have any concerns or questions about your operation or recovery. D. No smoking! Smoking drastically decreases the chance of a solid fusion. E. Do not take any anti-inflammatory medications (Indocin, Advil, Motrin, Aspirin, Naprosyn, etc.) as these may inhibit the chance of a solid fusion. Tylenol is okay to take for pain. MANAGING PAIN AFTER SPINAL SURGERY 1. Narcotic medication is intended for short-term use and will be provided for surgical pain. Surgical pain usually lasts for a period of 4-6 weeks. Narcotic medication includes Percocet, Vicodin, Darvocet, Tylenol #3 or Lortab. 2. Longer-term pain is more appropriately treated with non-narcotic medication such as Tylenol ES. 3. Muscle spasm is not appropriately treated with narcotics. Muscle relaxers such as Soma, Flexeril or Skelaxin can be used along with Tylenol ES. 4. Remember that we all live with some "aches and pains". This is not unusual or uncommon after an injury or as we get older. a. Back pain is expected and may include muscle spasms for 4 to 6 weeks after surgery. The pain should gradually improve. If the pain worsens for no apparent reason, please contact the office. b. Intermittent leg pain may also be experienced and should not be concerned about unless it worsens for no apparent reason. If so, please contact the office. 5. We will provide appropriate medication within the normal guidelines of their prescribed use. We will also be very cautious and aware of potential abuse and extended duration of patients' medication needs. a. Pain medications are for your comfort and to assist with sleep and rest so that the tissue can heal. They are not provided in order to return to normal activity and should not be used through the day. To do so or worsening pain at night can result from ongoing tissue damage and development of tolerance to the prescribed medicine. 6. Please allow 2-3 days to process refills. Prescriptions will not be mailed but must be picked up at the office. FOLLOW UP VISIT: Keep your scheduled follow-up appointment. Any questions, please call the office at . Pending Studies at Discharge: No Stand-Alone Forms: [facility], Smoking Cessation Medications and DC Order Prescriptions: New tramadol 50 mg tablet 50 mg PO Q6H PRN (Reason: pain, moderate) Qty: 30 0RF oxycodone 5 mg tablet 5 mg PO Q6H PRN (Reason: pain, severe) Qty: 30 0RF Continued atorvastatin 10 mg tablet 10 mg PO DAILY citalopram 20 mg tablet 20 mg PO DAILY Discontinued ibuprofen 200 mg Tablet 800 mg PO Q8 PRN (Reason: Pain) Discharge Orders: Discharge Order (Routine); Ordered 06/05/22 Ordered By: Jason Byers/Other Patient Handouts: Managing Type 2 Diabetes Admission Data Admit Date/Time: 05/31/22 14:48 Attending Provider: Marleny Ballard Admit Provider: Shyam Gan Primary Care Provider: Jerry Art Other Providers: Shyam Gan. ; Tenzin Davis ; Radha Mccann ; Arturo Peterson ; Elvia Vasquez ; Jason Goodwin
== END 2022-06-05 12:44 | disposition home or self-care (01) | DRG 455 ==
LOC: ED 09:06 → SUATTDRO 14:48 → 3N 14:48